=== PATIENT | male | born 1955 | race Caucasian/White ===

== ENCOUNTER → 2017-03-18 | Outpatient (CLI) | payer OTHER ==
[~2017-03-18] MED LIST: MECL-124 PO; PRX20T PO; SCOP1PAT TD
--- NOTE | 2017-03-18 13:53 | Diagnostic Imaging Report ---
EXAMINATION: Multiplanar multisequence MRI of the thoracic spine performed without intravenous contrast. INDICATION: Mid back pain and bilateral arm pain. FINDINGS: There is a prominent kyphosis in the [id number] thoracic spine. The alignment of the posterior spinal line is satisfactory. The vertebral body heights are preserved. There is a disc desiccation at all levels with mild disc height loss at midthoracic spine levels. There are multiple Schmorl's nodes seen. In T5 vertebral body, there is a 1 cm T1 hyperintense signal and also hyperintense T2 compatible with hemangioma. Multiple other smaller similar lesions are seen in the thoracic spine vertebral bodies. There is also suggestion of mild marrow edema around endplates of T2-T3 and T3-T4 levels suggestive of reactive changes from degenerative disc disease. Note is made of slightly prominent posterior epidural fat in the upper to midthoracic spine levels and relatively narrow AP dimension of the thecal sac without significant stenosis. There is a minimal posterior disc protrusion at the T5-T6 level with mild central canal stenosis reducing the AP dimension of the spinal canal to 9 mm at this level. No cord compression or cord signal abnormality. There is also a left paracentral disc protrusion at T10-T11 associated with moderate spinal canal stenosis reducing the AP dimension of the central canal to 8.2 mm with more pronounced narrowing along the left side aspect of the spinal canal with associated minimal compression of the spinal cord. No cord signal abnormality. At the T11-T12, there is a central disc protrusion and an annular tear with no significant spinal canal stenosis. No cord compression. The neural foramina demonstrate no significant narrowing. IMPRESSION: There is a left paracentral disc protrusion at the T10-T11 level associated with moderate spinal canal stenosis involving mostly the left side of the spinal canal and is associated with minimal cord compression. There is no cord signal abnormality. Dictated by: Dictated on workstation # [id number]
== END ==
LOC: RAD 08:11
PROVIDERS: ATTEND Nurse Practitioner
DX: M48.04 Spinal stenosis, thoracic region (principal)
CPT/HCPCS: 72146

== ENCOUNTER 2017-03-26 10:55 | Outpatient (RCR) | payer OTHER | END 2017-03-26 11:55 | disposition home or self-care (01) | PROVIDERS: ATTEND Physical Medicine & Rehabilitation | DX: M54.5 Low back pain (principal) ==

== ENCOUNTER 2019-03-29 05:36 | Outpatient (CLI) | payer OTHER ==
[~2019-03-29] VITALS: Ht 180.3 cm; Wt 99.8 kg
[2019-03-29] MEDS ORDERED: HYDR25TA4 PO (11:01)
[2019-03-29] MEDS ORDERED: CETI10TA17 PO (11:01)
[2019-03-29] MEDS ORDERED: LOVA20TA2 PO (11:01)
[2019-03-29] MEDS ORDERED: CHOL100045 PO (11:01)
[2019-03-29] MEDS ORDERED: PARO40TA3 PO (11:01)
[2019-03-29] MEDS ORDERED: ASPI-586 PO (11:01)
== END 2019-03-29 11:05 | disposition home or self-care (01) ==
LOC: PREOP 05:36
PROVIDERS: ATTEND Surgery
DX: Z01.818 Encounter for other preprocedural examination (principal)

== ENCOUNTER 2019-04-03 09:12 | Day surgery (SDC) | payer OTHER ==
[~2019-04-03] VITALS: Ht 180.3 cm; Wt 99.8 kg
[~2019-04-03 09:12] MED LIST changes: +ASPI-586 PO; +CETI10TA17 PO; +CHOL100045 PO; +HYDR25TA4 PO; +LOVA20TA2 PO; +PARO40TA3 PO
[2019-04-03] MEDS ORDERED: LACTATED RINGERS 1,000 ML IV ONE (09:18)
[2019-04-03] MEDS ORDERED: LACTATED RINGERS 1,000 ML IV STA (09:23)
--- NOTE | 2019-04-03 09:24 | Progress Note-Pre Operative ---
Pre-Operative Progress Note H&P Reviewed The H&P was reviewed, patient examined and no changes noted. Time Seen by Provider: 09:19 Date H&P Reviewed: Apr 03, 2019 Time H&P Reviewed: 09:20 Pre-Operative Diagnosis: Screening Colonoscopy BRITTNI GURROLA DO Apr 03, 2019 09:24
[2019-04-03 09:30] VITALS: BP 146/81
[2019-04-03] MEDS ORDERED: PROPOFOL INJECTION 50 ML IV ONE (10:44)
[2019-04-03] MEDS ORDERED: fentaNYL INJECTION 100 MCG/2 ML AMP ONE (10:45)
[2019-04-03] MEDS ORDERED: LIDOCAINE PF 2% 5 ML (XYLOCAINE) VIAL ONE (10:45)
[2019-04-03] MEDS ORDERED: MIDAZOLAM 2 MG/2 ML (VERSED) VIAL ONE (10:45)
--- NOTE | 2019-04-03 11:22 | Progress Note-Post Operative ---
Post-Operative Progess Note Surgeon (s)/Honing Machine Try Out Setter (s) Surgeon BRITTNI GURROLA DO Honing Machine Try Out Setter: none Pre-Operative Diagnosis Screening Colonoscopy Post-Operative Diagnosis Internal hemorrhoids Procedure & Operative Findings Date of Procedure 04/03/19 Procedure Performed/Findings colonoscopy Anesthesia Type IV sedation by IMAGER Estimated Blood Loss Estimated blood loss (mL): none Specimens/Packing Specimens Removed none BRITTNI GURROLA DO Apr 03, 2019 11:22
--- NOTE | 2019-04-03 11:23 | Endoscopy Discharge Instruct ---
Endo Procedure/Findings Findings 1.: Internal Hemorrhoids Discharge Instructions - Activity: You might feel a little sleepy until tomorrow. This is due to the me dicine you received to relax you. Until tomorrow, you should: NOT drive a car, operate machinery or power tools. NOT drink any alcoholic beverages. NOT make any important decisions or sign importortant papers. Do not return to work until tomorrow, unless otherwise instructed. Resume previous activities tomorrow. Diet: Start by taking liquids. If you tolerate liquids, advance to solid food. make an appointment for one week Instructions: 1.: Colonscopy in 10 years Notify Physician - If you experience excessive bleeding, unusual abdominal pain, fever, or chest pain, contact your doctor immediately. Follow-Up: - I have received and understand the above instructions and will call my doctor if I have any further questions. Patient Signature Date Nurse Signature Other (Relationship) BRITTNI GURROLA DO Apr 03, 2019 11:23
[2019-04-03 11:30] VITALS: BP 120/72
[2019-04-03 12:05] VITALS: BP 134/89
--- NOTE | 2019-04-03 22:01 | OPERATIVE REPORT ---
DATE OF SERVICE: PREOPERATIVE DIAGNOSIS: Screening colonoscopy with chronic diarrhea. POSTOPERATIVE DIAGNOSES: 1. Screening colonoscopy with chronic diarrhea. 2. Internal hemorrhoids. PROCEDURE: Colonoscopy. SURGEON: Xu Wagner DO PHOTOGRAPHER NEWS: None. ANESTHESIA: IV sedation by the BILINGUAL TEACHER ASSISTANT. SPECIMENS: None. BLOOD LOSS: None. FLUIDS: Per anesthesia. POSTOPERATIVE CONDITION: Stable. INDICATION FOR PROCEDURE: The patient is a 63-year-old male, who never had a colonoscopy, has a long history states 40 years of diarrhea and needed a screening colonoscopy. FINDINGS: The patient had some small internal hemorrhoids, but no other obvious pathology. PROCEDURE NOTE: After informed consent was obtained, the patient was brought to the endoscopy suite, placed in the bed in left lateral decubitus position. He was administered IV sedation by the BILINGUAL TEACHER ASSISTANT who then monitored his vitals the entire time, heart rate, blood pressure and pulse ox and the scope was inserted, pushed all the way to about 140 cm, able to get to the cecum, took a picture of appendiceal orifice, noted the ileocecal valve and then slowly withdrew the scope insufflating to look circumferentially at the rivera looking at the cecum, up the ascending colon to the hepatic flexure, then down the transverse colon, the splenic flexure, then down the descending colon into the sigmoid and finally into the rectum, retroflexed in the rectal vault, saw some minimal internal hemorrhoids, took a picture of this and then removed the scope. The patient tolerated the procedure well, recovered in the endoscopy suite. Job ID: [id number] DocumentID: [id number] Dictated Date: 04/03/2019 14:43:35 Band Edger Date: 04/03/2019 22:00:43 Dictated By: XU WAGNER DO
== END 2019-04-03 12:10 | disposition home or self-care (01) ==
LOC: ENDO 09:12
PROVIDERS: ATTEND Surgery
DX: K52.9 Noninfective gastroenteritis and colitis, unspecified (principal); K64.8 Other hemorrhoids; I10 Essential (primary) hypertension; F32.9 Major depressive disorder, single episode, unspecified; Z79.82 Long term (current) use of aspirin; Z79.899 Other long term (current) drug therapy

== ENCOUNTER 2019-05-18 09:49 | Inpatient (IN) | payer OTHER ==
[2019-05-18] VITALS (12 sets, daily range): BP systolic 116–135; BP diastolic 59–94
[~2019-05-18] VITALS: Ht 180.3 cm; Wt 92.5 kg
[2019-05-18] MEDS ORDERED: NS IV 1000 ML 1,000 ML IV ONE (10:37)
--- NOTE | 2019-05-18 10:39 | ED Psychosocial ---
General Chief Complaint: Psych/Social Disorder Stated Complaint: PSYCH EVAL;TROUBLE URINATING Nursing Triage Note: AMB TO ROOM REPORTS WAS TOLD BY [facility] TO COME TO ER. PATIENT REPORTS THAT IS HAS BEEN FEELING DEPRESSED BECAUSE HIS LEFT HIM. DOES NOT WANT TO KILL SELF BECAUSE IF YOU KILL YOU GO TO HELL. HAS NOT BEEN EATING OR DRINKING. Source: patient Exam Limitations: no limitations History of Present Illness Date Seen by Provider: May 18, 2019 Time Seen by Provider: 10:17 Initial Comments Here with report of suffering from depression but states he is not wanting to commit suicide. He has a safe place to go and has family support. He called the [facility] who recommended he come here for evaluation and potentially medication changes. He did not know that we do not have psychiatrist here. His daughter is available to stay with him home. He has no guns in the house as he had his brother in law remove them from the home. He'll safe otherwise. Symptoms exacerbated by recent separation with his . Does have long-standing history of depression. Admits to not eating or drinking well and states he is urinating less. Timing/Duration: week, getting worse Severity: moderate Associated Symptoms: anxiety, impaired concentration Allergies and Home Medications Allergies Coded Allergies: No Known Drug Allergies (Unverified , 09/18/13) Home Medications Aspirin 81 Mg Tablet.dr, 81 MG PO DAILY, (Reported) Cetirizine HCl 10 Mg Tablet, 10 MG PO DAILY, (Reported) Cholecalciferol (Vitamin D3) 1,000 Unit Tablet, 1,000 UNIT PO DAILY, (Reported) Hydrochlorothiazide 25 Mg Tablet, 25 MG PO DAILY, (Reported) Lovastatin 20 Mg Tablet, 20 MG PO DAILY, (Reported) Paroxetine HCl 40 Mg Tablet, 40 MG PO DAILY, (Reported) Patient Home Medication List Home Medication List Reviewed: Yes Review of Systems Constitutional: see HPI; No chills, No fever EENTM: no symptoms reported Respiratory: no symptoms reported Cardiovascular: no symptoms reported Gastrointestinal: No abdominal pain; loss of appetite; No nausea, No vomiting Psychiatric/Neurological: See HPI, Depressed, Emotional Problems All Other Systems Reviewed Negative Unless Noted: Yes Past Ycohlqf-Hcisfy-Rnhbzo Hx Past Med/Social Hx: Reviewed Nursing Past Med/Soc Hx Patient Social History Alcohol Use: Denies Use Recreational Drug Use: No Smoking Status: Former Smoker Recent Foreign Travel: No Contact w/Someone Who Travel: No Recent Infectious Disease Expo: No Recent Hopitalizations: No Immunizations Up To Date Date of Influenza Vaccine: Aug 04, 2013 Seasonal Allergies Seasonal Allergies: Yes Past Medical History Surgeries: Yes (WISDOM TEETH) Respiratory: Yes Sleep Apnea Cardiac: Yes High Cholesterol, Hypertension Neurological: No Genitourinary: No Gastrointestinal: Yes (rectal bleeding) Musculoskeletal: No Endocrine: No HEENT: No Cancer: No Psychosocial: Yes Depression Integumentary: No Blood Disorders: No Family Medical History Reviewed Nursing Family Hx No Pertinent Family Hx Physical Exam Vital Signs - First Documented 05/18/19 05/18/19 09:56 11:57 Temp 98.0 Pulse 86 Resp 18 B/P (MAP) 153/88 (109) Pulse Ox 94 O2 Delivery Room Air Capillary Refill : Less Than 3 Seconds Height, Weight, BMI Height: 5'11.00" Weight: 214lbs. 0.0oz. 97.249010cx; 30.7 BMI Method:Stated General Appearance: WD/WN, no apparent distress HEENT: PERRL/EOMI, pharynx normal Neck: full range of motion, supple Respiratory: lungs clear, normal breath sounds Cardiovascular: regular rate, rhythm, no murmur Gastrointestinal: non tender, soft Extremities: non-tender, normal inspection Neurologic/Psychiatric: alert, oriented x 3 Appearance/Memory: appropriate appearance, appropriate insight, neat Behavior/Eye Contact: cooperative, good eye contact, normal speech Thoughts/Hallucinations: normal thought pattern, no apparent hallucination, other (denies suicidal or homicidal ideations) Skin: normal color, warm/dry Progress/Results/Core Measures Results/Orders Lab Results Laboratory Tests Test 05/18/19 10:53 Range/Units White Blood Count 6.7 4.3-11.0 10^3/uL Red Blood Count 5.43 4.35-5.85 10^6/uL Hemoglobin 16.8 13.3-17.7 G/DL Hematocrit 48 40-54 % Mean Corpuscular Volume 89 80-99 FL Mean Corpuscular Hemoglobin 31 25-34 PG Mean Corpuscular Hemoglobin Concent 35 32-36 G/DL Red Cell Distribution Width 13.5 10.0-14.5 % Platelet Count 253 130-400 10^3/uL Mean Platelet Volume 10.0 7.4-10.4 FL Neutrophils (%) (Auto) 74 42-75 % Lymphocytes (%) (Auto) 17 12-44 % Monocytes (%) (Auto) 8 0-12 % Eosinophils (%) (Auto) 1 0-10 % Basophils (%) (Auto) 0 0-10 % Neutrophils # (Auto) 4.9 1.8-7.8 X 10^3 Lymphocytes # (Auto) 1.1 1.0-4.0 X 10^3 Monocytes # (Auto) 0.6 0.0-1.0 X 10^3 Eosinophils # (Auto) 0.0 0.0-0.3 10^3/uL Basophils # (Auto) 0.0 0.0-0.1 10^3/uL Sodium Level 139 135-145 MMOL/L Potassium Level 3.4 L 3.6-5.0 MMOL/L Chloride Level 104 98-107 MMOL/L Carbon Dioxide Level 23 21-32 MMOL/L Anion Gap 12 5-14 MMOL/L Blood Urea Nitrogen 21 H 7-18 MG/DL Creatinine 1.41 H 0.60-1.30 MG/DL Estimat Glomerular Filtration Rate 50 BUN/Creatinine Ratio 15 Glucose Level 137 H 70-105 MG/DL Calcium Level 9.6 8.5-10.1 MG/DL Corrected Calcium 9.2 8.5-10.1 MG/DL Total Bilirubin 0.9 0.1-1.0 MG/DL Aspartate Amino Transf (AST/SGOT) 19 5-34 U/L Alanine Aminotransferase (ALT/SGPT) 17 0-55 U/L Alkaline Phosphatase 64 40-136 U/L Total Protein 7.2 6.4-8.2 GM/DL Albumin 4.5 3.2-4.5 GM/DL TSH [place] Testing 1.33 0.35-4.94 UIU/ML Salicylates Level < 5.0 L 5.0-20.0 MG/DL Acetaminophen Level < 10 L 10-30 UG/ML Serum Alcohol < 10 <10 MG/DL My Orders Orders - JUAN MANUEL ALVES MD Ua Culture If Indicated (05/18/19 10:37) Cbc With Automated Diff (05/18/19 10:37) Comprehensive Metabolic Panel (05/18/19 10:37) Alcohol (05/18/19 10:37) Drug Screen Stat (Urine) (05/18/19 10:37) Acetaminophen (05/18/19 10:37) Salicylate (05/18/19 10:37) Ekg Tracing (05/18/19 10:37) Ed Iv/Invasive Line Start (05/18/19 10:37) Thyroid Analyzer (05/18/19 10:37) Monitor-Rhythm Ecg Trace Only (05/18/19 10:37) Bh Status Checks/Observation Q15M (05/18/19 10:37) Ed Iv/Invasive Line Start (05/18/19 10:37) Ns Iv 1000 Ml (Sodium Chloride 0.9%) (05/18/19 10:37) General/Regular (05/18/19 Lunch) Ns (Ivpb) (Sodium C... W/Diltiazem Iv Fo (05/18/19 11:45) Diltiazem Injection (Cardizem Injection) (05/18/19 11:45) Apixaban Tablet (Eliquis Tablet) (05/18/19 12:00) Chest 1 View, Ap/Pa Only (05/18/19 12:00) Ambulate 08,12,20 (05/18/19 12:02) Sequential Compression Device 08,20 (05/18/19 12:02) Dvt/Vte Risk - Notifiy Physici .ONCE (05/18/19 12:02) Mrsa Screen (Icu,Preop,Cath) (05/18/19 12:06) Mrsa Nursing Screening/Treatme .admit (05/18/19 12:06) Medications Given in ED Current Medications Medications Dose Ordered Sig/Seamus Route Start Time Stop Time Status Last Admin Dose Admin Apixaban 5 mg ONCE ONCE PO 05/18/19 12:00 05/18/19 12:01 DC 05/18/19 11:59 5 MG Diltiazem HCl 10 mg ONCE ONCE IVP 05/18/19 11:45 05/18/19 11:46 DC 05/18/19 11:38 10 MG Sodium Chloride 1,000 ml @ 0 mls/hr Q0M ONCE IV 05/18/19 10:37 05/18/19 10:39 DC 05/18/19 10:56 1,000 MLS/HR Vital Signs/I&O 05/18/19 05/18/19 05/18/19 09:56 11:44 11:57 Temp 98.0 Pulse 86 100 84 Resp 18 18 B/P (MAP) 153/88 (109) 126/89 (101) Pulse Ox 94 O2 Delivery Room Air Blood Pressure Mean: 109 Progress Progress Note : Progress Note Seen and evaluated. IV, labs, UA, EKG, normal saline 1 L bolus ordered. Regular diet ordered. Pending labs and [facility]. P atient has safe place to go and is not actively suicidal. We can consider trazodone instead of amitriptyline for sleep at night. Monitor patient. 1132: A. fib with RVR noted. Cardizem 10 mg IV bolus and 5 mg an hour initiated. I did discuss the case with Dr. Simpson she accepts patient for admission, inpatient status. Patient is [facility] also with [facility] and would prefer to stay here so we will admit him here. 1152: I did discuss the case with Dr. Lee and he accepts patient in consult and requests Eliquis 5 mg by mouth twice a day. This has been initiated. Patient agrees to plan. Admit, inpatient status. Initial ECG Impression Date: May 18, 2019 Initial ECG Impression Time: 11:06 Initial ECG Rate: 117 Initial ECG Rhythm: A Fib/Flutter Initial ECG Impression: Atrial Fibrillation w/RVR Initial ECG Comparisson: Changed Comment A. fib with RVR. Normal axis. No evidence of ST elevation NC. Change from previous of 18 September 2017. Interpreted by me. Diagnostic Imaging Diagonstic Imaging: Xray Plain Films/CT/US/NM/MRI: chest Comments MED REC#: [id number] PT STATUS: ADM IN : 1955 PHYSICIAN: JUAN MANUEL ALVES MD ADMIT DATE: 05/18/19/ICU Draf t Date of Exam:05/18/19 CHEST 1 VIEW, AP/PA ONLY Indication: Tachycardia. Time of exam: 12:07 PM Correlation is made prior chest from 10/08/2014. The heart size is normal. The pulmonary vascularity is unremarkable. The lungs are clear. No infiltrate, effusion or pneumothorax is detected. Impression: No acute cardiopulmonary process is detected. Dictated on workstation # [id number] Dict: 05/18/19 1216 Trans: 05/18/19 1219 [facility] [id number] Interpreted by: CROW MALAVE MD Electronically signed by: Reviewed: Reviewed by Me Departure Communication (Admissions) Time/Spoke to Admitting Phy: 11:32 Time/Spoke to Consulting Phy: 11:52 Impression Primary Impression: Atrial fibrillation with RVR Additional Impression: Depression Qualified Codes: F32.9 - Major depressive disorder, single episode, unspecified Disposition: ADMITTED INPATIENT Condition: Stable Admissions Decision to Admit Reason: Admit from ER (General) Decision to Admit/Date: May 18, 2019 Time/Decision to Admit Time: 11:32 Departure-Patient Inst. Referrals: NO,LOCAL PHYSICIAN (PCP/Family) Primary Care Physician JUAN MANUEL ALVES MD May 18, 2019 10:39
[2019-05-18 11:04] LABS: BASOPHILS % (AUTO) 0 % (0-10); EOSINOPHILS % (AUTO) 1 % (0-10); HEMATOCRIT 48 % (40-54); HEMOGLOBIN 16.8 G/DL (13.3-17.7); LYMPHOCYTES # (AUTO) 1.1 X 10^3 (1.0-4.0); LYMPHOCYTES % (AUTO) 17 % (12-44); MEAN CORPUSCULAR HEMOGLOBIN 31 PG (25-34); MEAN CORPUSCULAR HGB CONC 35 G/DL (32-36); MEAN CORPUSCULAR VOLUME 89 FL (80-99); MONOCYTES # (AUTO) 0.6 X 10^3 (0.0-1.0); MONOCYTES % (AUTO) 8 % (0-12); NEUTROPHILS # (AUTO) 4.9 X 10^3 (1.8-7.8); NEUTROPHILS % (AUTO) 74 % (42-75); PLATELET COUNT 253 10^3/uL (130-400); RED CELL DISTRIBUTION WIDTH 13.5 % (10.0-14.5); WHITE BLOOD COUNT 6.7 10^3/uL (4.3-11.0)
--- NOTE | 2019-05-18 11:13 | NUR ---
PLACED ON MONITOR EKG SHOW A FIB PATIENT REPORTS THAT HE UNAWARE OF HAVING A IRREGULAR HR.
[2019-05-18 11:21] LABS: ALANINE AMINOTRANSFERASE 17 U/L (0-55); ALBUMIN 4.5 GM/DL (3.2-4.5); ALKALINE PHOSPHATASE 64 U/L (40-136); BILIRUBIN,TOTAL 0.9 MG/DL (0.1-1.0); BUN/CREATININE RATIO 15; CALCIUM 9.6 MG/DL (8.5-10.1); CARBON DIOXIDE 23 MMOL/L (21-32); CHLORIDE 104 MMOL/L (98-107); CREATININE SERUM 1.41 MG/DL (0.60-1.30); GFR ESTIMATED 50; GLUCOSE 137 MG/DL (70-105); POTASSIUM 3.4 MMOL/L (3.6-5.0); SALICYLATE < 5.0 MG/DL (5.0-20.0); SODIUM 139 MMOL/L (135-145); TOTAL PROTEIN 7.2 GM/DL (6.4-8.2)
[2019-05-18 11:22] LABS: ACETAMINOPHEN < 10 UG/ML (10-30)
[2019-05-18] MEDS ORDERED: DILTIAZEM 25 MG/5 ML INJ (CARDIZEM) VIAL IVP ONE (11:45)
[2019-05-18] MEDS ORDERED: DILTIAZEM IV FOR DRIP 125 MG in NS (IVPB) 100 ML IV SCH (11:45)
--- NOTE | 2019-05-18 11:53 | NUR ---
FOOD TRAY ORDERED
[2019-05-18] MEDS ORDERED: APIXABAN 5 MG (ELIQUIS) TABLET PO ONE (12:00)
--- NOTE | 2019-05-18 12:19 | Diagnostic Imaging Report ---
Indication: Tachycardia. Time of exam: 12:07 PM Correlation is made prior chest from 10/08/2014. The heart size is normal. The pulmonary vascularity is unremarkable. The lungs are clear. No infiltrate, effusion or pneumothorax is detected. Impression: No acute cardiopulmonary process is detected. Dictated by: Dictated on workstation # [id number]
--- NOTE | 2019-05-18 12:24 | NUR ---
FOOD TRAY GIVEN
--- NOTE | 2019-05-18 12:38 | NUR ---
ON ADMIT BATTERY WENT ON MONITOR VITALS LOST.
[2019-05-18] MEDS ORDERED: NS IV 1000 ML 1,000 ML IV SCH (13:45)
--- NOTE | 2019-05-18 14:22 | Consultation-Cardiology ---
HPI-Cardiology Cardiology Consultation: Date of Consultation 05/18/19 Date of Admission Attending Physician Milady Simpson MD Admitting Physician No,Local Physician Consulting Physician Randall LEE MD HPI: Time Seen by a Provider: 15:00 Chief Complaint: atrial fibrillation with rapid ventricular rate this is a 63-year-old gentleman who denies having any significant cardiac symptoms. He denies active smoking. He does have history of anxiety and depression. He is not suicidal. He came to the ER for worsening anxiety. He was noted to have rapid irregular heart beating and was found to have atrial fibrillation with rapid ventricular rate. Review of Systems-Cardiology Review of Systems Constitutional: As described under HPI; No As described under HPI, No no symptoms reported, No chills, No fever, No lightheadedness Eyes: No As described under HPI, No no symptoms reported, No blindness, No blurred vision, No contact lenses, No drainage, No decreased acuity, No foreign body sensation, No pain, No vision change Ears/Nose/Throat: No As described under HPI, No no symptoms reported, No chronic hearing loss, No ear discharge, No ear pain, No nasal drainage, No ulcerations Respiratory: No no symptoms reported; As described under HPI; No As described under HPI, No cough, No orthopnea, No shortness of breath, No SOB with excertion Cardiovascular: No no symptoms reported; As described under HPI; No As described under HPI, No chest pain, No edema, No irregular heart rate, No lightheadedness, No palpitations Gastrointestinal: No no symptoms reported, No As described under HPI, No abdomen distended, No abdominal pain, No blood streaked bowels, No constipation, No diarrhea, No nausea, No vomiting, No stool coloration changes Genitourinary: No As described under HPI, No burning, No dysuria, No discharge, No frequency, No flank pain, No hematuria, No urgency Skin: No rash, No skin related problems, No ulcerations Psychiatric/Neurological: anxiety, depression; No seizure, No focal weakness, No syncope Hematologic: No bleeding abnormalities All Other Systems Reviewed Negative Unless Noted: Yes BAN-Jdziea-Zrazlr Hx Patient Social History Alcohol Use: Denies Use Recreational Drug Use: No Smoking Status: Former Smoker Recent Foreign Travel: No Recent Infectious Disease Expo: No Hospitalization with Isolation: Denies Immunizations Up To Date Date of Influenza Vaccine: Aug 04, 2013 Past Medical History PMH As described under Assessment. Allergies and Home Medications Allergies Coded Allergies: No Known Drug Allergies (Unverified , 09/18/13) Home Medications Amitriptyline HCl 25 Mg Tablet, 50 MG PO HS, (Reported) TAKES 2 (25MG) TABLETS Aspirin 81 Mg Tablet.dr, 81 MG PO DAILY, (Reported) Cetirizine HCl 10 Mg Tablet, 10 MG PO DAILY, (Reported) Cholecalciferol (Vitamin D3) 1,000 Unit Tablet, 1,000 UNIT PO DAILY, (Reported) Fluticasone Propionate 16 Gm Mott.susp, 2 SPRAYS NS DAILY PRN for ALLERGIES, (Reported) Hydrochlorothiazide 25 Mg Tablet, 12.5 MG PO DAILY, (Reported) TAKES 1/2 (25MG) TABLET Lovastatin 10 Mg Tablet, 5 MG PO DAILY, (Reported) TAKES 1/2 (10MG) TABLET Melatonin 5 Mg Capsule, 5 MG PO HS PRN for SLEEP, (Reported) Paroxetine HCl 40 Mg Tablet, 40 MG PO DAILY, (Reported) Patient Home Medication List Home Medication List Reviewed: Yes Physical Exam-Cardiology Physical Exam Vital Signs/I&O 05/18/19 05/18/19 05/18/19 05/18/19 09:56 11:44 11:57 12:42 Temp 98.0 Pulse 86 100 84 105 Resp 18 18 18 B/P (MAP) 153/88 (109) 126/89 (101) 127/75 (92) Pulse Ox 94 97 O2 Delivery Room Air Room Air 05/18/19 05/18/19 05/18/19 05/18/19 13:07 13:10 13:43 14:00 Pulse 106 107 129 B/P (MAP) 120/91 (101) 116/79 (91) Pulse Ox 98 96 O2 Delivery Room Air Room Air Room Air 05/18/19 05/18/19 15:00 15:48 Pulse 89 93 B/P (MAP) 135/59 (84) Pulse Ox 96 O2 Delivery Room Air Capillary Refill : Less Than 3 Seconds Constitutional: appears stated age, AAO x 3; No apparent distress; well- developed, well-nourished HEENT: PERRL; No normal ENT inspection, No TMs normal, No pharynx normal, No scleral icterus (R), No scleral icterus (L), No pale conjunctivae (R), No pale conjunctivae (L), No photophobia, No TM abnormal (R), No TM abnormal (L), No pharyngeal erythema, No tonsillar exudate, No other, No discharge, No EOMI; hearing is well preserved; No hard of hearing; oral hygience is good; No ulceration, No xanthelasmas are seen Neck: No non-tender, No full range of motion, No supple, No normal inspection, No carotid bruit, No limited range of motion, No lymphadenopathy (R), No lymphadenopathy (L), No tender lateral, No tender midline, No thyromegaly, No other; carotid pulses are 2 + bilaterally; No with good upstrokes Respiratory: No accessory muscle use, No respiratory distress, No chest tender, No chest expansion is symmetric; chest is bilaterally symmetric; No lungs clear to percussion; lungs clear to auscultation; No crackles, No rhonchi, No rales, No stridor, No wheezing, No pleural rub, No other Cardiovascular: No regular rate-rhythm; irregularly irregular; No extra beats, No parasternal heave is noted, No JVD, No edema, No bradycardia; tachycardia; No point of maximal impulse, No cardiac thrills are palpable; S1 and S2; No gallop/S3, No gallop/S4, No diastolic murmur, No systolic murmur, No friction rub, No click, No other Gastrointestinal: No tender, No soft, No round, No distended, No pulsatile mass, No organomegaly, No guarding, No rebound, No tenderness, No hernia, No mass, No audible bowel sounds, No abnormal bowel sounds, No abdominal bruits, No spleenomegaly, No other Rectal: deferred Extremities: No normal range of motion, No non-tender, No normal inspection, No pedal edema, No calf tenderness, No normal capillary refill, No pelvis stable, No calf tenderness, No inflammation, No pedal edema, No slow capillary refill, No swelling, No other, No abrasion, No clubbing, No cyanosis, No ecchymosis, No laceration, No no lower extremity edema bilateral, No significant edema, No tenderness, No wound Neurologic/Psychiatric: no motor/sensory deficits, alert, normal mood/affect, oriented x 3, power is 5/5 both on sides Skin: No normal color, No warm/dry, No cyanosis, No cool, No diaphoresis, No damp, No ecchymosis, No jaundice, No mottled, No pallor, No rash, No tattoos/piercings, No ulcerations, No rash on exposed areas, No ulcerations on exposed areas, No other Data Review Labs Laboratory Tests 05/18/19 10:53: White Blood Count 6.7, Red Blood Count 5.43, Hemoglobin 16.8, Hematocrit 48, Mean Corpuscular Volume 89, Mean Corpuscular Hemoglobin 31, Mean Corpuscular Hemoglobin Concent 35, Red Cell Distribution Width 13.5, Platelet Count 253, Mean Platelet Volume 10.0, Neutrophils (%) (Auto) 74, Lymphocytes (%) (Auto) 17, Monocytes (%) (Auto) 8, Eosinophils (%) (Auto) 1, Basophils (%) (Auto) 0, Neutrophils # (Auto) 4.9, Lymphocytes # (Auto) 1.1, Monocytes # (Auto) 0.6, Eosinophils # (Auto) 0.0, Basophils # (Auto) 0.0, Sodium Level 139, Potassium Level 3.4L, Chloride Level 104, Carbon Dioxide Level 23, Anion Gap 12, Blood Urea Nitrogen 21H, Creatinine 1.41H, Estimat Glomerular Filtration Rate 50, BUN/Creatinine Ratio 15, Glucose Level 137H, Calcium Level 9.6, Corrected Henry cium 9.2, Total Bilirubin 0.9, Aspartate Amino Transf (AST/SGOT) 19, Alanine Aminotransferase (ALT/SGPT) 17, Alkaline Phosphatase 64, Total Protein 7.2, Albumin 4.5, TSH Tobias Testing 1.33, Salicylates Level < 5.0L, Acetaminophen Level < 10L, Serum Alcohol < 10 ECG Impression ECG Initial ECG Impression: Atrial Fibrillation w/RVR A/P-Cardiology Assessment/Admission Diagnosis atrial fibrillation with rapid ventricular rate, Chronic kidney disease, Anxiety, Depression Plan Cardizem infusion. Give amiodarone bolus 150 mg 1. Start amiodarone infusion. Start Eliquis 5 mg twice a day. CHADSVASC score 2 for age over 65 and hypertension. Therefore oral anticoagulation therapy is superior to aspirin for stroke prevention. I spoke to him about pathophysiology of atrial fibrillation. If patient does not convert till tomorrow morning, transesophageal echocardiogram assisted cardioversion is recommended. Nothing by mouth after midnight. I will recommend an echocardiogram. Chronic kidney disease. Anxiety/depression. Defer to Dr. Simpson. Thank you for your consultation. Please call me if you have any questions. Precious Lee MD, FACP, FACC, FSCAI, FHRS, CCDS Interventional Cardiology Cardiac Electrophysiology Vascular Medicine and Endovascular Interventions Clinical Quality Measures DVT/VTE Risk/Contraindication: Risk Factor Score Per Nursin RFS Level Per Nursing on Admit: 2=Moderate Randall LEE MD May 18, 2019 14:22
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
--- NOTE | 2019-05-18 14:38 | NUR ---
REQUESTED MEDICATION LIST TO BE FAXED FROM [facility] AT THIS TIME.
[2019-05-18] MEDS ORDERED: LOVA10TA PO (15:27)
[2019-05-18] MEDS ORDERED: AMIT25TA9 PO (15:27)
[2019-05-18] MEDS ORDERED: FLUT16SP22 NS (15:27)
[2019-05-18] MEDS ORDERED: AMIODARONE FOR BOLUS 150 MG in D5W 100 ML IVPB 100 ML IV ONE (15:30)
[2019-05-18] MEDS ORDERED: MELA5CAP PO (15:30)
--- NOTE | 2019-05-18 15:30 | NUR ---
SPOKE WITH THE PATIENT ABOUT HIS MEDICATIONS. HE COULD NOT FIND HIS LIST BUT WE WENT OVER WHAT WE HAD ON FILE AND HE WAS ABLE TO VERIFY HOW HE TAKES THEM. HE ALSO STATES THEY STARTED HIM ON A NEW NIGHT TIME MEDICATION. [facility] [place] [facility]. I UPDATED THE MED REC WITH THAT INFORMATION. [facility]ILL[facility]: 04-26-19 FLONASE NASAL SPRAY 2 SPRAYS NS DAILY (PATIENT DID NOT LIST THIS BUT I ADDED IT TO THE MED REC PRN) 04-26-19 PAROXETINE 40MG DAILY #90 04-26-19 LOVASTATIN 10MG 1/2 DAILY #45 04-18-19 AMITRIPTYLINE 25MG 1 HS X 2 WEEKS THEN 2 HS #173 (TAKES 2 HS NOW) 03-31-19 CETIRIZINE 10MG DAILY #90 03-25-19 HCTZ 25MG 1/2 TAB DAILY #45 01-25-19 LIDOCAINE 5% OINT BID PRN (NOT CURRENTLY USING) 08-24-18 SUMATRIPTAN SUCCINATE 100MG UD #9 (NOT LISTED BY PATIENT) HE TAKES VITAMIN D AND ASPIRIN 81MG DAILY OTC WELL MELATONIN AT HS.
[2019-05-18] MEDS: DILTIAZEM 125 MG/NS 100 ML IV SCH ×4 (15:48→23:19)
[2019-05-18] MEDS: AMIODARONE INJECTION 450 MG in D5W IV SOLUTION (EXCEL) 250 ML IV SCH (15:49)
[2019-05-18] MEDS ORDERED: FLUTICASONE NASAL SPRAY (FLONASE) 16 GM BTL NS PRN (16:15)
[2019-05-18] MEDS: LORazepam 0.5 MG (ATIVAN) TABLET PO PRN (17:21)
[2019-05-18] MEDS: TAMSULOSIN 0.4 MG (FLOMAX) CAP PO SCH (17:21)
[2019-05-18 20:11] LABS: BILIRUBIN,URINE NEGATIVE (NEGATIVE); CLARITY,URINE CLEAR; COLOR,URINE YELLOW; GLUCOSE, URINE (UA) NEGATIVE (NEGATIVE); KETONES,URINE NEGATIVE (NEGATIVE); LEUKOCYTE ESTERASE ,URINE 1+ (NEGATIVE); NITRITE,URINE NEGATIVE (NEGATIVE); PH,URINE 5 (5-9); PROTEIN,URINE NEGATIVE (NEGATIVE); UROBILINOGEN,URINE NORMAL (NORMAL)
[2019-05-18] MEDS: APIXABAN 5 MG (ELIQUIS) TABLET PO SCH (20:15)
[2019-05-18] MEDS: AMITRIPTYLINE 50 MG (ELAVIL) TAB PO SCH (20:16)
[2019-05-18] MEDS: SIMvastatin 10 MG (ZOCOR) TAB PO SCH (20:18)
[2019-05-18 20:27] LABS: BACTERIA,URINE FEW /HPF
[2019-05-18 20:31] LABS: AMPHETAMINE SCREEN, URINE NEGATIVE (NEGATIVE); BARBITURATE SCREEN URINE NEGATIVE (NEGATIVE); BENZODIAZEPINES SCREEN URINE NEGATIVE (NEGATIVE); CANNABINOID SCREEN, URINE NEGATIVE (NEGATIVE); COCAINE SCREEN URINE NEGATIVE (NEGATIVE); METHADONE STAT NEGATIVE (NEGATIVE); METHAMPHETAMINE SCREEN URINE S NEGATIVE (NEGATIVE); OPIATE SCREEN URINE NEGATIVE (NEGATIVE); OXYCODONE STAT NEGATIVE (NEGATIVE); PROPOXYPHENE STAT NEGATIVE (NEGATIVE); TRICYCLIC ANTIDEPRESSANTS SCRE POSITIVE (NEGATIVE)
[2019-05-18] MEDS ORDERED: MELATONIN 3 MG TABLET PO PRN (21:00)
[2019-05-18] MEDS ORDERED: APIXABAN 5 MG (ELIQUIS) TABLET PO SCH (21:00)
[2019-05-19] VITALS (8 sets, daily range): BP systolic 111–160; BP diastolic 59–75
[2019-05-19] MEDS: AMIODARONE INJECTION 450 MG in D5W IV SOLUTION (EXCEL) 250 ML IV SCH ×2
[2019-05-19] MEDS: LORazepam 0.5 MG (ATIVAN) TABLET PO PRN (00:18)
[2019-05-19 03:47] LABS: BASOPHILS % (AUTO) 1 % (0-10); EOSINOPHILS # (AUTO) 0.1 10^3/uL (0.0-0.3); EOSINOPHILS % (AUTO) 1 % (0-10); HEMATOCRIT 41 % (40-54); HEMOGLOBIN 13.8 G/DL (13.3-17.7); LYMPHOCYTES # (AUTO) 1.7 X 10^3 (1.0-4.0); LYMPHOCYTES % (AUTO) 20 % (12-44); MEAN CORPUSCULAR HEMOGLOBIN 31 PG (25-34); MEAN CORPUSCULAR HGB CONC 34 G/DL (32-36); MEAN CORPUSCULAR VOLUME 91 FL (80-99); MEAN PLATELET VOLUME 10.2 FL (7.4-10.4); MONOCYTES # (AUTO) 0.7 X 10^3 (0.0-1.0); MONOCYTES % (AUTO) 9 % (0-12); NEUTROPHILS # (AUTO) 5.6 X 10^3 (1.8-7.8); NEUTROPHILS % (AUTO) 69 % (42-75); PLATELET COUNT 215 10^3/uL (130-400); RED CELL DISTRIBUTION WIDTH 13.3 % (10.0-14.5); WHITE BLOOD COUNT 8.2 10^3/uL (4.3-11.0)
[2019-05-19 04:06] LABS: CALCIUM 8.9 MG/DL (8.5-10.1); CREATININE SERUM 1.68 MG/DL (0.60-1.30); MAGNESIUM 1.7 MG/DL (1.6-2.4); POTASSIUM 3.5 MMOL/L (3.6-5.0)
[2019-05-19] MEDS ORDERED: KCL 20 MEQ TAB (K-DUR) PO ONE (05:15)
[2019-05-19] MEDS ORDERED: POTASSIUM CL 10MEQ/50ML IVPB 50 ML IV SCH (06:00)
[2019-05-19] MEDS ORDERED: MAGNESIUM 1 GM/100 ML IVPB 100 ML IV SCH (06:00)
[2019-05-19] MEDS ORDERED: KCL 20 MEQ TAB (K-DUR) PO SCH (06:00)
[2019-05-19] MEDS: MAGNESIUM 1 GM/100 ML IVPB 100 ML IV SCH ×2 (06:51→09:32)
--- NOTE | 2019-05-19 07:49 | Progress Note - Hospitalist ---
EMELIA MEDRANO,MED STUDENT 05/19/19 7:49am: Subjective HPI/CC On Admission Date Seen by Provider: May 19, 2019 Patient is a 63y/o M that presented to the ED for depression upon the recommendation of the the [facility]. His episode started about a week ago and he denies any thoughts of self-harm because "people that kill themselves go to he ll". His recently left him and got a restraining order against him. Patient said that he has not been eating or drinking much for the past month and mentioned that he has not been sleeping well. Denies fever, chills, CHASE, Nausea, vomiting, chest pain. Admits to dizziness, feeling clammy, Brambila, and dysuria. No history of a-fib Subjective/Events-last exam Patient states that he is tired because he did not go to sleep until 4am this morning but overall he says that he is feeling better. He denies headache, nausea, vomiting, SOB, weakness, chest pain, diaphoresis, constipation, diarrhea, numbness, tingling. Admits to stomach pain, tiredness, and urinary hesitancy. Patient says that he has not voided much and had a catheter put in but it was to uncomfortable so he had it taken out. Patient says that family did come to see him yesterday. Objective Exam Vital Signs Vital Signs Date Time Temp Pulse Resp B/P (MAP) Pulse Ox O2 Delivery O2 Flow Rate FiO2 05/19/19 12:00 98.3 05/19/19 12:00 67 24 96 Room Air 05/19/19 06:00 124/75 (91) Capillary Refill : Less Than 3 Seconds General Appearance: No Apparent Distress, WD/WN, Obese Neck: Non Tender, Supple Respiratory: Chest Non Tender, Lungs Clear, Normal Breath Sounds, No Accessory Muscle Use, No Respiratory Distress Cardiovascular: Regular Rate, Rhythm, No Edema, No Gallop, No JVD, No Murmur, Normal Peripheral Pulses Gastrointestinal: Normal Bowel Sounds, No Pulsatile Mass, Non Tender, Soft Extremity: Non Tender, No Calf Tenderness, No Pedal Edema Neurologic/Psychiatric: Alert, Oriented x3, Normal Mood/Affect Skin: Normal Color, Warm/Dry Results/Procedures Lab Laboratory Tests 05/19/19 03:07 Patient resulted labs reviewed. Assessment/Plan Assessment and Plan Assess & Plan/Chief Complaint A-fib converted overnight to sinus rhythm while on amnio drip consult cardiology continue eliquis for stroke ppx continue diltiazem Hypokalemia K+ protocol HTN hold HCTZ hypercholesterolemia continue Lovastatin Depression with suicidal ideations consult social service coordinator consult [facility] = safe for discharge with outpatient follow up continue antidepressants = Ativan and amitriptyline FENGIPPX Stop fluids K+ protocol regular diet eliquis Clinical Quality Measures DVT/VTE Risk/Contraindication: Risk Factor Score Per Nursin RFS Level Per Nursing on Admit: 2=Moderate DAVON SIMPSON MD 05/19/19 4:06pm: Subjective HPI/CC On Admission Time Seen by Provider: 09:00 Assessment/Plan Assessment and Plan Assess & Plan/Chief Complaint Completed amiodarone drip tonight. Will monitor overnight to make sure stays in sinus rhythm. Seen by Saulo Renteria with [facility] and cleared for discharge for psych outpatient follow up. Will likely be able to DC home tomorrow if maintains sinus rhythm. Supervisory-Addendum Brief Verification & Attestation Participated in pt care: history, MDM, physical Personally performed: exam, history, MDM, supervision of care Care discussed with: Medical Student Procedures: n/a Results interpretation: Verified all documentation Verification and Attestation of Medical Student E/M Service A medical student performed and documented this service in my presence. I revi ewed and verified all information documented by the medical student and made modifications to such information, when appropriate. I personally performed the physical exam and medical decision making. Davon Simpson, May 19, 2019,16:05 EMELIA MEDRANO,MED STUDENT May 19, 2019 7:49 am DAVON SIMPSON MD May 19, 2019 4:06 pm
--- NOTE | 2019-05-19 07:56 | Diagnostic Imaging Report ---
Indication: Shortness breath, atrial fibrillation. Comparison: 02/15/2019 Findings: Single view of the chest demonstrates clear lungs bilaterally. The heart is normal. There is no pneumothorax. The osseous structures normal. Impression: Negative chest. Dictated by: Dictated on workstation # [id number]
--- NOTE | 2019-05-19 09:14 | NUR ---
CM/SS spoke with the patient and he denies wanting to commit suicide. He does state that he would like to go to sleep and not wake up, but that there is a difference. He will not commit suicide as it is a sin and he would go to hell. He stated that he and his are and getting a divorce, that she has said that he was stalking her and has a PFA against him at this time, he claims it is false accusations and he was not stalking her. He did have his brother take him to the [employer] office and gave them his guns and a knife he had. [facility] [place] [place] and then the [facility] in . He will get his medications filled with them and is in the process of having counseling set up. TERESO Floyd, Saulo Renteria, contacted and is screening the patient at this time.
[2019-05-19] MEDS: ASPIRIN 81 MG CHEW (CHILDREN'S ASA) PO SCH (09:32)
[2019-05-19] MEDS: DILTIAZEM 120 MG (CARDIZEM CD) CAP PO SCH (09:33)
[2019-05-19] MEDS: PARoxetine 20 MG (PAXIL) TAB PO SCH (09:33)
[2019-05-19] MEDS: APIXABAN 5 MG (ELIQUIS) TABLET PO SCH ×2 (09:34→21:55)
[2019-05-19] MEDS: LORATADINE (CLARITIN) 10 MG TAB PO SCH (09:34)
--- NOTE | 2019-05-19 10:01 | Cardiology Progress Note ---
Cardiology SOAP Progress Note Subjective: Converted to sinus rhythm last evening. Objective: I&O/Vital Signs 05/18/19 05/18/19 05/18/19 05/19/19 22:00 23:00 23:19 00:00 Pulse 63 57 B/P (MAP) 123/67 (85) 131/83 (99) Pulse Ox 93 96 O2 Delivery Room Air Room Air Mechanical Ventilator Room Air 05/19/19 05/19/19 05/19/19 05/19/19 00:00 01:00 01:00 02:00 Pulse 62 58 62 52 Resp 12 18 17 B/P (MAP) 123/68 (86) 126/65 (85) 111/59 (76) Pulse Ox 96 94 98 O2 Delivery Room Air Room Air Room Air 05/19/19 05/19/19 05/19/19 05/19/19 03:00 04:00 04:00 05:00 Pulse 53 79 57 Resp 23 18 B/P (MAP) 119/63 (81) 121/75 (90) Pulse Ox 95 92 O2 Delivery Room Air Room Air Room Air Room Air 05/19/19 05/19/19 05/19/19 05/19/19 06:00 07:00 07:00 08:00 Pulse 55 59 52 56 Resp 19 17 22 B/P (MAP) 124/75 (91) Pulse Ox 94 95 95 O2 Delivery Room Air Room Air Room Air 05/19/19 05/19/19 09:00 09:53 Temp 97.7 Pulse 75 Resp 13 Pulse Ox 97 O2 Delivery Room Air 05/19/19 00:00 Intake Total 1464 ml Output Total 875 ml Balance 589 ml Weight (Pounds): 204 Weight (Ounces): 0.1 Weight (Calculated Kilograms): 92.029407 Constitutional: appears stated age, AAO x 3; No apparent distress; well- developed, well-nourished Respiratory: No accessory muscle use, No respiratory distress, No chest tender, No chest expansion is symmetric; chest is bilaterally symmetric; No lungs clear to percussion; lungs clear to auscultation; No crackles, No rhonchi, No rales, No stridor, No wheezing, No pleural rub, No other Cardiovascular: regular rate-rhythm; No irregularly irregular, No extra beats, No parasternal heave is noted, No JVD, No edema, No bradycardia, No tachycardia, No point of maximal impulse, No cardiac thrills are palpable; S1 and S2; No gallop/S3, No gallop/S4, No diastolic murmur, No systolic murmur, No friction rub, No click, No other Gastrointestional: No tender, No soft, No round, No distended, No pulsatile mass, No organomegaly, No guarding, No rebound, No tenderness, No hernia, No mass, No audible bowel sounds, No abnormal bowel sounds, No abdominal bruits, No spleenomegaly, No other Extremities: No normal range of motion, No non-tender, No normal inspection, No pedal edema, No calf tenderness, No normal capillary refill, No pelvis stable, No calf tenderness, No inflammation, No pedal edema, No slow capillary refill, No swelling, No other, No abrasion, No clubbing, No cyanosis, No ecchymosis, No laceration, No no lower extremity edema bilateral, No significant edema, No tenderness, No wound Neurologic/Psychiatric: no motor/sensory deficits, alert, normal mood/affect, oriented x 3, power is 5/5 both on sides Skin: No normal color, No warm/dry, No cyanosis, No cool, No diaphoresis, No damp, No ecchymosis, No jaundice, No mottled, No pallor, No rash, No tattoos/piercings, No ulcerations, No rash on exposed areas, No ulcerations on exposed areas, No other Results/Procedures: Labs Laboratory Tests 05/18/19 10:53: White Blood Count 6.7, Red Blood Count 5.43, Hemoglobin 16.8, Hematocrit 48, Mean Corpuscular Volume 89, Mean Corpuscular Hemoglobin 31, Mean Corpuscular Hemoglobin Concent 35, Red Cell Distribution Width 13.5, Platelet Count 253, Mean Platelet Volume 10.0, Neutrophils (%) (Auto) 74, Lymphocytes (%) (Auto) 17, Monocytes (%) (Auto) 8, Eosinophils (%) (Auto) 1, Basophils (%) (Auto) 0, Neutrophils # (Auto) 4.9, Lymphocytes # (Auto) 1.1, Monocytes # (Auto) 0.6, Eosinophils # (Auto) 0.0, Basophils # (Auto) 0.0, Sodium Level 139, Potassium Level 3.4L, Chloride Level 104, Carbon Dioxide Level 23, Anion Gap 12, Blood Urea Nitrogen 21H, Creatinine 1.41H, Estimat Glomerular Filtration Rate 50, BUN/Creatinine Ratio 15, Glucose Level 137H, Calcium Level 9.6, Corrected Calcium 9.2, Total Bilirubin 0.9, Aspartate Amino Transf (AST/SGOT) 19, Alanine Aminotransferase (ALT/SGPT) 17, Alkaline Phosphatase 64, Total Protein 7.2, Albumin 4.5, TSH Terry Testing 1.33, Salicylates Level < 5.0L, Acetaminophen Level < 10L, Serum Alcohol < 10 05/18/19 20:00: Urine Color YELLOW, Urine Clarity CLEAR, Urine pH 5, Urine Specific [place] 1.025H, Urine Protein NEGATIVE, Urine Glucose (UA) NEGATIVE, Urine Ketones NEGATIVE, Urine Nitrite NEGATIVE, Urine Bilirubin NEGATIVE, Urine Urobilinogen NORMAL, Urine Leukocyte Esterase 1+H, Urine RBC (Auto) NEGATIVE, Urine RBC NONE, Urine WBC 5-10H, Urine Crystals NONE, Urine Bacteria FEWH, Urine Casts NONE, Urine Mucus NEGATIVE, Urine Culture Indicated CULTURE PENDING, Urine Opiates Screen NEGATIVE, Urine Oxycodone Screen NEGATIVE, Urine Methadone Screen NEGATIVE, Urine Propoxyphene Screen NEGATIVE, Urine Barbiturates Screen NEGATIVE, Ur Tricyclic Antidepressants Screen POSITIVEH, Urine Phencyclidine Screen NEGATIVE, Urine Amphetamines Screen NEGATIVE, Urine Methamphetamines Screen NEGATIVE, Urine Benzodiazepines Screen NEGATIVE, Urine Cocaine Screen NEGATIVE, Urine Cannabinoids Screen NEGATIVE 05/19/19 03:07: White Blood Count 8.2, Red Blood Count 4.45, Hemoglobin 13.8, Hematocrit 41, Mean Corpuscular Volume 91, Mean Corpuscular Hemoglobin 31, Mean Corpuscular Hemoglobin Concent 34, Red Cell Distribution Width 13.3, Platelet Count 215, Mean Platelet Volume 10.2, Neutrophils (%) (Auto) 69, Lymphocytes (%) (Auto) 20, Monocytes (%) (Auto) 9, Eosinophils (%) (Auto) 1, Basophils (%) (Auto) 1, Neutrophils # (Auto) 5.6, Lymphocytes # (Auto) 1.7, Monocytes # (Auto) 0.7, Eosinophils # (Auto) 0.1, Basophils # (Auto) 0.0, Sodium Level 141, Potassium Level 3.5L, Chloride Level 104, Carbon Dioxide Level 25, Anion Gap 12, Blood Urea Nitrogen 25H, Creatinine 1.68H, Estimat Glomerular Filtration Rate 41, BUN/Creatinine Ratio 15, Glucose Level 129H, Calcium Level 8.9, Phosphorus Level 4.0, Magnesium Level 1.7 A/P: Assessment/Dx: atrial fibrillation with rapid ventricular rate, converted to sinus rhythm last evening. Chronic kidney disease, Anxiety, Depression Plan: Atrial fibrillation with rapid ventricular rate, converted to sinus rhythm last evening. Finish amiodarone infusion. Change Cardizem infusion to Cardizem CD 120 mg by mouth. Continue Eliquis. Event monitor for a month. Patient can follow-up with me in 6 weeks on discharge. Chronic kidney disease. Anxiety/depression. Defer to Dr. Simpson. Thank you for your consultation. Please call me if you have any questions. Precious Lee MD, FACP, FACC, FSCAI, FHRS, CCDS Interventional Cardiology Cardiac Electrophysiology Vascular Medicine and Endovascular Interventions Randall LEE MD May 19, 2019 10:01 am
--- NOTE | 2019-05-19 10:34 | NUR ---
CM/SS SAVE Line Saulo Renteria, assessed. Copy of assessment in patient chart. Patient is ok'ed for outpatient plan. Saulo felt that he does have some ideation not suicide ideation. The daughter will stay with the patient for a few days. [facility]
--- NOTE | 2019-05-19 11:56 | Discharge Summary ---
Diagnosis/Chief Complaint Date of Admission May 18, 2019 at 12:18 pm Date of Discharge Admission Diagnosis Primary Care No,Local Physician Discharge Diagnosis (1) Atrial fibrillation with RVR Status: Acute (2) Depression Status: Acute (3) Suicidal ideation (4) Essential (primary) hypertension (5) Hypokalemia (6) PBA (pseudobulbar affect) Discharge Summary Discharge Physical Exam Allergies: Coded Allergies: No Known Drug Allergies (Unverified , 09/18/13) Vitals & I&Os Vital Signs Date Time Temp Pulse Resp B/P (MAP) Pulse Ox O2 Delivery O2 Flow Rate FiO2 05/19/19 12:00 98.3 05/19/19 12:00 67 24 96 Room Air 05/19/19 06:00 124/75 (91) Hospital Course Labs (last 24 hrs) Laboratory Tests 05/18/19 20:00: Urine Color YELLOW, Urine Clarity CLEAR, Urine pH 5, Urine Specific [place] 1.025H, Urine Protein NEGATIVE, Urine Glucose (UA) NEGATIVE, Urine Ketones NEGATIVE, Urine Nitrite NEGATIVE, Urine Bilirubin NEGATIVE, Urine Urobilinogen NORMAL, Urine Leukocyte Esterase 1+H, Urine RBC (Auto) NEGATIVE, Urine RBC NONE, Urine WBC 5-10H, Urine Crystals NONE, Urine Bacteria FEWH, Urine Casts NONE, Urine Mucus NEGATIVE, Urine Culture Indicated CULTURE PENDING, Urine Opiates Screen NEGATIVE, Urine Oxycodone Screen NEGATIVE, Urine Methadone Screen NEGATIVE, Urine Propoxyphene Screen NEGATIVE, Urine Barbiturates Screen NEGATIVE, Ur Tricyclic Antidepressants Screen POSITIVEH, Urine Phencyclidine Screen NEGATIVE, Urine Amphetamines Screen NEGATIVE, Urine Methamphetamines Screen NEGATIVE, Urine Benzodiazepines Screen NEGATIVE, Urine Cocaine Screen NEGATIVE, Urine Cannabinoids Screen NEGATIVE 05/19/19 03:07: White Blood Count 8.2, Red Blood Count 4.45, Hemoglobin 13.8, Hematocrit 41, Mean Corpuscular Volume 91, Mean Corpuscular Hemoglobin 31, Mean Corpuscular Hemoglobin Concent 34, Red Cell Distribution Width 13.3, Platelet Count 215, M luba Platelet Volume 10.2, Neutrophils (%) (Auto) 69, Lymphocytes (%) (Auto) 20, Monocytes (%) (Auto) 9, Eosinophils (%) (Auto) 1, Basophils (%) (Auto) 1, Neutrophils # (Auto) 5.6, Lymphocytes # (Auto) 1.7, Monocytes # (Auto) 0.7, Eosinophils # (Auto) 0.1, Basophils # (Auto) 0.0, Sodium Level 141, Potassium Level 3.5L, Chloride Level 104, Carbon Dioxide Level 25, Anion Gap 12, Blood Urea Nitrogen 25H, Creatinine 1.68H, Estimat Glomerular Filtration Rate 41, BUN/Creatinine Ratio 15, Glucose Level 129H, Calcium Level 8.9, Phosphorus Level 4.0, Magnesium Level 1.7 Patient resulted labs reviewed. Discharge Home Medications: Active Scripts Active Diltiazem 24Hr Cd (Diltiazem HCl) 120 Mg Cap.er.24h 120 Mg PO DAILY Flomax (Tamsulosin HCl) 0.4 Mg Cap 0.4 Mg PO DAILY@1800 Eliquis (Apixaban) 5 Mg Tablet 5 Mg PO BID Reported Melatonin 5 Mg Capsule 5 Mg PO HS PRN Fluticasone Propionate 16 Gm [place].susp 2 Sprays NS DAILY PRN Amitriptyline HCl 25 Mg Tablet 50 Mg PO HS TAKES 2 (25MG) TABLETS Lovastatin 10 Mg Tablet 5 Mg PO DAILY TAKES 1/2 (10MG) TABLET Cetirizine HCl 10 Mg Tablet 10 Mg PO DAILY Vitamin D (Cholecalciferol (Vitamin D3)) 1,000 Unit Tablet 1,000 Unit PO DAILY Aspir 81 (Aspirin) 81 Mg Tablet.dr 81 Mg PO DAILY Hydrochlorothiazide 25 Mg Tablet 12.5 Mg PO DAILY TAKES 1/2 (25MG) TABLET Paroxetine HCl 40 Mg Tablet 40 Mg PO DAILY Instructions to patient/family Please see electronic discharge instructions given to patient. Clinical Quality Measures DVT/VTE Risk/Contraindication: Risk Factor Score Per Nursin RFS Level Per Nursing on Admit: 2=Moderate Problem Qualifiers (1) Depression: Depression Type: unspecified Qualified Codes: F32.9 - Major depressive disorder, single episode, unspecified DAVON SELLERS MD May 19, 2019 11:56
[2019-05-19] MEDS ORDERED: APIX5TAB PO (11:59)
[2019-05-19] MEDS ORDERED: DILT120C94 PO (11:59)
[2019-05-19] MEDS ORDERED: TAMS0.4C98 PO (11:59)
--- NOTE | 2019-05-19 12:53 | NUR ---
Pt requested visit with this test grader due to past rapport. The pt verbalized anxieties and hopelessness. His recently left and him. He said he would do anything to have her back because he fears loneliness. He recalled his previous divorce and and the 10 year span in between marriages, which he described as lonely and painful. Multiple times he said he thought about killing himself and utilized the suicide hotline since his left. Throughout our conversation he said he could not kill himself because he does not "want to spend eternity in hell." He said "I want to , but I don't." He reaches out to a friend in [place] at times, and calls family when feeling overwhelmed. The pt verbalized openness about regrets and a desire to be closer to God. I provided active listening until his speech patterns quelled and his body relaxed. Offered prayer for purpose, direction, and courage.
--- NOTE | 2019-05-19 14:26 | NUR ---
Report given to JANESSA Pang. Pt placed on telemetry and transport to room 412 via W/C with no difficulties. Personal belongings with patient at time of transfer.
--- NOTE | 2019-05-19 15:16 | NUR ---
paged again per pt's request: He was weeping aloud, saying he wanted to and he could not go on without his ex , Geraldine. He said he is afraid to be alone. He has a gun collection and said he arranged with the police department for all his weapons to be taken from the house. The pt said he only feels comfortable speaking to women. I told him Chaplain Marixa Mejias was supervisor metal furniture fabrication tonight if he wanted to talk to a mechanical operator again. Prayed and again remained with the pt until he demonstrated calmness.
--- NOTE | 2019-05-19 15:46 | NUR ---
received bedside report from Karely RIDDLE icu
[2019-05-19] MEDS: TAMSULOSIN 0.4 MG (FLOMAX) CAP PO SCH (17:26)
--- NOTE | 2019-05-19 21:30 | NUR ---
patient reports he has not urinated in 16 hours, and that he does not feel comfortable. bladder scan showed 457ml. Dr. Simpson called at 2012. ordered prn straight cath when bladder scan shows greater than 500ml, or if it shows greater than 350ml and patient is symptomatic. straight cath done at 2130, pt had 650 output.
[2019-05-19] MEDS: AMITRIPTYLINE 50 MG (ELAVIL) TAB PO SCH (21:55)
[2019-05-19] MEDS: SIMvastatin 10 MG (ZOCOR) TAB PO SCH (21:55)
[2019-05-20] VITALS: BP 163/79
[2019-05-20] MEDS: LORazepam 0.5 MG (ATIVAN) TABLET PO PRN (01:32)
[2019-05-20 04:00] VITALS: BP 152/76
--- NOTE | 2019-05-20 07:28 | Discharge Summary ---
EMELIA MEDRANO,MED STUDENT 05/20/19 7:28am: Diagnosis/Chief Complaint Date of Admission May 18, 2019 at 12:18 Date of Discharge Discharge Date: May 19, 2019 Admission Diagnosis Primary Care No,Local Physician Discharge Diagnosis (1) Atrial fibrillation with RVR Status: Acute (2) Depression Status: Acute (3) Suicidal ideation (4) Essential (primary) hypertension (5) Hypokalemia (6) PBA (pseudobulbar affect) Discharge Summary Procedures/Consulations Consulted Cardiology Consulted [facility] Discharge Physical Exam Allergies: Coded Allergies: No Known Drug Allergies (Unverified , 09/18/13) Vitals & I&Os Vital Signs Date Time Temp Pulse Resp B/P (MAP) Pulse Ox O2 Delivery O2 Flow Rate FiO2 05/20/19 04:00 98.4 66 20 152/76 (101) 94 Room Air Hospital Course Patient presented to the ED 2 days ago with depression and suicidal ideation. Admitted to ICU because ED discovered that the patient was in A-fib with RVR and cardiology was consulted. Patient was given diltiazem and amiodarone for A-fib and started on Eliquis for stoke ppx. Patient was given Ativan, amitriptyline, and paroxetine for depression and anxiety. [facility] was consulted and evaluated the patient d/t depression and suicidal ideations. Patient stayed an extra night d/t worry that he might try and OD on eliquis if he went home yesterday. Labs (last 24 hrs) Microbiology 05/18/19 MRSA Screen - Final, Complete MRSA not isolated Patient resulted labs reviewed. Radiology Reviewed CXR 05/18 and 05/19 = No acute cardiopulmonary process is detected Discharge Home Medications: Active Scripts Active Diltiazem 24Hr Cd (Diltiazem HCl) 120 Mg Cap.er.24h 120 Mg PO DAILY Flomax (Tamsulosin HCl) 0.4 Mg Cap 0.4 Mg PO DAILY@1800 Eliquis (Apixaban) 5 Mg Tablet 5 Mg PO BID Reported Melatonin 5 Mg Capsule 5 Mg PO HS PRN Fluticasone Propionate 16 Gm [place].susp 2 Sprays NS DAILY PRN Amitriptyline HCl 25 Mg Tablet 50 Mg PO HS TAKES 2 (25MG) TABLETS Lovastatin 10 Mg Tablet 5 Mg PO DAILY TAKES 1/2 (10MG) TABLET Cetirizine HCl 10 Mg Tablet 10 Mg PO DAILY Vitamin D (Cholecalciferol (Vitamin D3)) 1,000 Unit Tablet 1,000 Unit PO DAILY Aspir 81 (Aspirin) 81 Mg Tablet. 81 Mg PO DAILY Hydrochlorothiazide 25 Mg Tablet 12.5 Mg PO DAILY TAKES 1/2 (25MG) TABLET Paroxetine HCl 40 Mg Tablet 40 Mg PO DAILY Instructions to patient/family Please see electronic discharge instructions given to patient. Clinical Quality Measures DVT/VTE Risk/Contraindication: Risk Factor Score Per Nursin RFS Level Per Nursing on Admit: 2=Moderate DAVON SELLERS MD 05/20/19 12:46pm: Diagnosis/Chief Complaint Admission Diagnosis Atrial Fibrillation Discharge Diagnosis Atrial Fibrillation with RVR- new onset Discharge Summary Procedures/Consulations Cardiology- Dr Lee Discharge Physical Exam Allergies: Coded Allergies: No Known Drug Allergies (Unverified , 09/18/13) General Appearance: No Apparent Distress, WD/WN Respiratory: Lungs Clear, No Accessory Muscle Use, No Respiratory Distress Cardiovascular: Regular Rate, Rhythm, No Murmur Neurologic/Psychiatric: Alert, Oriented x3 Discussion & Recommendations Discharge Planning: >30 minutes discharge planning Problem Qualifiers (1) Depression: Depression Type: unspecified Qualified Codes: F32.9 - Major depressive disorder, single episode, unspecified EMELIA MEDRANO,MED STUDENT May 20, 2019 7:28 am DAVON SELLERS MD May 20, 2019 12:46 pm
[2019-05-20 08:00] VITALS: BP 148/75
[2019-05-20] MEDS: PARoxetine 20 MG (PAXIL) TAB PO SCH (09:48)
[2019-05-20] MEDS: DILTIAZEM 120 MG (CARDIZEM CD) CAP PO SCH (09:48)
[2019-05-20] MEDS: APIXABAN 5 MG (ELIQUIS) TABLET PO SCH (09:49)
[2019-05-20] MEDS: LORATADINE (CLARITIN) 10 MG TAB PO SCH (09:49)
[2019-05-20] MEDS: ASPIRIN 81 MG CHEW (CHILDREN'S ASA) PO SCH (09:49)
== END 2019-05-20 14:01 | disposition home or self-care (01) | DRG 309 ==
LOC: EDUNIT# 09:49 → ER 09:50 → ICU 12:18 → 4TH 05-19 15:12
PROVIDERS: ADMIT Family Medicine; ATTEND Family Medicine
DX: I48.91 Unspecified atrial fibrillation (principal); F32.9 Major depressive disorder, single episode, unspecified; F41.9 Anxiety disorder, unspecified; R45.851 Suicidal ideations; F48.2 Pseudobulbar affect; I12.9 Hypertensive chronic kidney disease with stage 1 through stage 4 chronic kidney disease, or unspecified chronic kidney disease; N18.9 Chronic kidney disease, unspecified; E78.00 Pure hypercholesterolemia, unspecified; G47.30 Sleep apnea, unspecified; G43.909 Migraine, unspecified, not intractable, without status migrainosus; E87.6 Hypokalemia; Z87.891 Personal history of nicotine dependence
CPT/HCPCS: 36415; 71045; 80048; 80053; 80306; 80320; 80329; 81000; 83735; 84100; 84443; 85025; 87081; 93005; 93041; 93306; 96361; 96365

== ENCOUNTER 2019-05-22 15:37 | Emergency (ER) | payer OTHER ==
[~2019-05-22] VITALS: Ht 180.3 cm; Wt 92.5 kg
[~2019-05-22 15:37] MED LIST changes: +AMIT25TA9 PO; +APIX5TAB PO; +DILT120C94 PO; +FLUT16SP22 NS; +LOVA10TA PO; +MELA5CAP PO; +TAMS0.4C98 PO
[2019-05-22 15:59] LABS: BASOPHILS % (AUTO) 1 % (0-10); EOSINOPHILS # (AUTO) 0.1 10^3/uL (0.0-0.3); EOSINOPHILS % (AUTO) 1 % (0-10); HEMATOCRIT 44 % (40-54); HEMOGLOBIN 14.9 G/DL (13.3-17.7); LYMPHOCYTES # (AUTO) 1.1 X 10^3 (1.0-4.0); LYMPHOCYTES % (AUTO) 17 % (12-44); MEAN CORPUSCULAR HEMOGLOBIN 31 PG (25-34); MEAN CORPUSCULAR HGB CONC 34 G/DL (32-36); MEAN CORPUSCULAR VOLUME 90 FL (80-99); MEAN PLATELET VOLUME 9.8 FL (7.4-10.4); MONOCYTES # (AUTO) 0.5 X 10^3 (0.0-1.0); MONOCYTES % (AUTO) 8 % (0-12); NEUTROPHILS # (AUTO) 4.6 X 10^3 (1.8-7.8); NEUTROPHILS % (AUTO) 73 % (42-75); PLATELET COUNT 229 10^3/uL (130-400); RED CELL DISTRIBUTION WIDTH 13.5 % (10.0-14.5); WHITE BLOOD COUNT 6.3 10^3/uL (4.3-11.0)
[2019-05-22] MEDS ORDERED: ASPIRIN 81 MG CHEW (CHILDREN'S ASA) PO ONE ×2 (16:00→17:15)
--- NOTE | 2019-05-22 16:11 | Diagnostic Imaging Report ---
INDICATION: Chest pain. Portable chest at 04:02 p.m. FINDINGS: Heart size and pulmonary vascularity are normal. Lungs are clear. There are no effusions or pneumothoraces. IMPRESSION: Negative chest. Dictated by: Dictated on workstation # [id number]
[2019-05-22 16:13] LABS: INR 1.2 (0.8-1.4); PROTHROMBIN TIME PATIENT 15.3 SEC (12.2-14.7)
[2019-05-22 16:29] LABS: ALANINE AMINOTRANSFERASE 10 U/L (0-55); ALBUMIN 4.5 GM/DL (3.2-4.5); ALKALINE PHOSPHATASE 63 U/L (40-136); BILIRUBIN,TOTAL 0.5 MG/DL (0.1-1.0); BUN/CREATININE RATIO 14; CALCIUM 9.6 MG/DL (8.5-10.1); CARBON DIOXIDE 27 MMOL/L (21-32); CHLORIDE 104 MMOL/L (98-107); CREATININE SERUM 1.19 MG/DL (0.60-1.30); GFR ESTIMATED > 60; GLUCOSE 99 MG/DL (70-105); MAGNESIUM 1.7 MG/DL (1.6-2.4); POTASSIUM 3.8 MMOL/L (3.6-5.0); SODIUM 140 MMOL/L (135-145); TOTAL PROTEIN 7.2 GM/DL (6.4-8.2)
--- NOTE | 2019-05-22 16:59 | ED Chest Pain ---
General Chief Complaint: Chest Pain Stated Complaint: CHEST DISCOMFOT Nursing Triage Note: PT ARRIVES TO ED AMBULATORY FROM HOME, STATES HE HAS A HX OF A FIB, VERBALIZED CHEST DISCOMFORT ONSET AROUND THIRTY MINUTES MACHINIST AFTER THE PT WAS WALKING TO HIS VEHICLE FROM ANOTHER MEDICAL APPOINTMENT. PT DENIES SOB, VERBALIZES A HX OF ANXIETY WITH RECENT LIFE STRESSORS, DENIES PLANS OF SELF HARM Nursing Sepsis Screen: No Definite Risk Source: patient Exam Limitations: no limitations History of Present Illness Date Seen by Provider: May 22, 2019 Time Seen by Provider: 16:58 Initial Comments To ER with reports of chest pain. He describes this as discomfort, this began earlier this afternoon about 45 minutes prior to arrival while he was leaving the outpatient clinic. He was just discharged from here a few days ago for new onset atrial fibrillation with rapid ventricular response. He presented to that visit with complaints of anxiety and depression, found incidentally to have atrial fibrillation. He is now on Flomax because of some urinary retention, di ltiazem and an anticoagulant. Was not started on anything for mood. Pain is worsened by deep breathing and movement. Timing/Duration: changing over time Severity/Quality: moderate Location: central Radiation: no radiation Activities at Onset: none ASA po MACHINIST: No NTG SL MACHINIST: No Allergies and Home Medications Allergies Coded Allergies: No Known Drug Allergies (Unverified , 09/18/13) Home Medications Amitriptyline HCl 25 Mg Tablet, 50 MG PO HS, (Reported) TAKES 2 (25MG) TABLETS Apixaban 5 Mg Tablet, 5 MG PO BID Prescribed by: DAVON SELLERS on 05/19/19 1159 Aspirin 81 Mg Tablet.dr, 81 MG PO DAILY, (Reported) Cetirizine HCl 10 Mg Tablet, 10 MG PO DAILY, (Reported) Cholecalciferol (Vitamin D3) 1,000 Unit Tablet, 1,000 UNIT PO DAILY, (Reported) Diltiazem HCl 120 Mg Cap.er.24h, 120 MG PO DAILY Prescribed by: DAVON SELLERS on 05/19/19 1159 Fluticasone Propionate 16 Gm [place].susp, 2 SPRAYS NS DAILY PRN for ALLERGIES, (Reported) Lovastatin 10 Mg Tablet, 5 MG PO DAILY, (Reported) TAKES 1/2 (10MG) TABLET Melatonin 5 Mg Capsule, 5 MG PO HS PRN for SLEEP, (Reported) Paroxetine HCl 40 Mg Tablet, 40 MG PO DAILY, (Reported) Tamsulosin HCl 0.4 Mg Cap, 0.4 MG PO DAILY@1800 Prescribed by: DAVON SELLERS on 05/19/19 1159 Patient Home Medication List Home Medication List Reviewed: Yes Review of Systems Review of Systems Constitutional: see HPI EENTM: No Symptoms Reported Respiratory: No Symptoms Reported Cardiovascular: No Symptoms Reported Gastrointestinal: No Symptoms Reported Genitourinary: No Symptoms Reported Musculoskeletal: no symptoms reported Skin: no symptoms reported Psychiatric/Neurological: No Symptoms Reported Endocrine: No Symptoms Reported Hematologic/Lymphatic: No Symptoms Reported Past Sohedvp-Upyede-Ruedtc Hx Patient Social History Alcohol Use: Denies Use Recreational Drug Use: No Smoking Status: Never a Smoker 2nd Hand Smoke Exposure: No Recent Foreign Travel: No Contact w/Someone Who Travel: No Recent Infectious Disease Expo: No Recent Hopitalizations: No Immunizations Up To Date Tetanus Booster (TDap): Less than 5yrs Date of Pneumonia Vaccine: May 18, 2017 Date of Influenza Vaccine: Aug 04, 2013 Seasonal Allergies Seasonal Allergies: Yes Past Medical History Surgeries: Yes (WISDOM TEETH) Respiratory: Yes Sleep Apnea Currently Using BIPAP: Yes Cardiac: Yes High Cholesterol, Hypertension Neurological: No Headaches /Migraines Genitourinary: No Gastrointestinal: Yes (rectal bleeding) Musculoskeletal: No Back Injury Endocrine: No HEENT: No Cancer: No Psychosocial: Yes Anxiety, Depression Integumentary: No Blood Disorders: No Family Medical History No Pertinent Family Hx Physical Exam Vital Signs Vital Signs - First Documented 05/22/19 15:38 Temp 97.9 Pulse 90 Resp 22 B/P (MAP) 156/85 (108) Pulse Ox 97 O2 Delivery Room Air FiO2 97 Capillary Refill : Less Than 3 Seconds Height, Weight, BMI Height: 5'11.00" Weight: 204lbs. 0.1oz. 92.907178hd; 30.7 BMI Method:Stated General Appearance: No Apparent Distress, WD/WN HEENT: PERRL/EOMI, TMs Normal Respiratory: Normal Breath Sounds, No Accessory Muscle Use, No Respiratory Distress Gastrointestinal: Non Tender, Soft Extremity: Normal Capillary Refill, Normal Inspection Neurologic/Psychiatric: Alert, Oriented x3 Skin: Normal Color, Warm/Dry Progress/Results/Core Measures Results/Orders Lab Results Laboratory Tests Test 05/22/19 15:45 05/22/19 17:45 Range/Units White Blood Count 6.3 4.3-11.0 10^3/uL Red Blood Count 4.86 4.35-5.85 10^6/uL Hemoglobin 14.9 13.3-17.7 G/DL Hematocrit 44 40-54 % Mean Corpuscular Volume 90 80-99 FL Mean Corpuscular Hemoglobin 31 25-34 PG Mean Corpuscular Hemoglobin Concent 34 32-36 G/DL Red Cell Distribution Width 13.5 10.0-14.5 % Platelet Count 229 130-400 10^3/uL Mean Platelet Volume 9.8 7.4-10.4 FL Neutrophils (%) (Auto) 73 42-75 % Lymphocytes (%) (Auto) 17 12-44 % Monocytes (%) (Auto) 8 0-12 % Eosinophils (%) (Auto) 1 0-10 % Basophils (%) (Auto) 1 0-10 % Neutrophils # (Auto) 4.6 1.8-7.8 X 10^3 Lymphocytes # (Auto) 1.1 1.0-4.0 X 10^3 Monocytes # (Auto) 0.5 0.0-1.0 X 10^3 Eosinophils # (Auto) 0.1 0.0-0.3 10^3/uL Basophils # (Auto) 0.0 0.0-0.1 10^3/uL Prothrombin Time 15.3 H 12.2-14.7 SEC INR Comment 1.2 0.8-1.4 Activated Partial Thromboplast Time 33 24-35 SEC Sodium Level 140 135-145 MMOL/L Potassium Level 3.8 3.6-5.0 MMOL/L Chloride Level 104 98-107 MMOL/L Carbon Dioxide Level 27 21-32 MMOL/L Anion Gap 9 5-14 MMOL/L Blood Urea Nitrogen 17 7-18 MG/DL Creatinine 1.19 0.60-1.30 MG/DL Estimat Glomerular Filtration Rate > 60 BUN/Creatinine Ratio 14 Glucose Level 99 70-105 MG/DL Calcium Level 9.6 8.5-10.1 MG/DL Corrected Calcium 9.2 8.5-10.1 MG/DL Magnesium Level 1.7 1.6-2.4 MG/DL Total Bilirubin 0.5 0.1-1.0 MG/DL Aspartate Amino Transf (AST/SGOT) 18 5-34 U/L Alanine Aminotransferase (ALT/SGPT) 10 0-55 U/L Alkaline Phosphatase 63 40-136 U/L Myoglobin 57.2 10.0-92.0 NG/ML Troponin I < 0.028 < 0.028 <0.028 NG/ML Total Protein 7.2 6.4-8.2 GM/DL Albumin 4.5 3.2-4.5 GM/DL My Orders Orders - RIO SÁNCHEZ APRN Cbc With Automated Diff (05/22/19 15:48) Magnesium (05/22/19 15:48) Chest 1 View, Ap/Pa Only (05/22/19 15:48) Ekg Tracing (05/22/19 15:48) Cardiac Profile 1 (05/22/19 15:48) Comprehensive Metabolic Panel (05/22/19 15:48) Myoglobin Serum (05/22/19 15:48) Protime With Inr (05/22/19 15:48) Partial Thromboplastin Time (05/22/19 15:48) O2 (05/22/19 15:48) Monitor-Rhythm Ecg Trace Only (05/22/19 15:48) Lipid Panel (05/23/19 06:00) Ed Iv/Invasive Line Start (05/22/19 15:48) Aspirin Chewable Tablet (Baby Aspirin Ch (05/22/19 16:00) Alprazolam Tablet (Xanax Tablet) (05/22/19 17:15) Aspirin Chewable Tablet (Baby Aspirin Ch (05/22/19 17:15) Troponin I (05/22/19 17:36) Medications Given in ED Current Medications Medications Dose Ordered Sig/Seamus Route Start Time Stop Time Status Last Admin Dose Admin Aspirin 243 mg ONCE ONCE PO 05/22/19 17:15 05/22/19 17:16 DC 05/22/19 15:56 243 MG Vital Signs/I&O 05/22/19 05/22/19 05/22/19 15:38 15:38 15:40 Temp 97.9 Pulse 90 Resp 22 B/P (MAP) 156/85 (108) Pulse Ox 97 97 O2 Delivery Room Air Room Air Room Air FiO2 97 Blood Pressure Mean: 108 Departure Impression Primary Impression: Chest pain Qualified Codes: R07.9 - Chest pain, unspecified Additional Impression: Anxiety Disposition: 01 HOME, SELF-CARE Condition: Stable Departure-Patient Inst. Decision time for Depature: 18:15 Referrals: NO,LOCAL PHYSICIAN (PCP) Primary Care Physician MELODY [place] (Family) Primary Care Physician Patient Instructions: Chest Pain (DC), Anxiety, Adult (DC) Add. Discharge Instructions: . Medication as directed 2. Return to ER for any concerns All discharge instructions reviewed with patient and/or family. Voiced understanding. Scripts Alprazolam (Xanax) 0.5 Mg Tablet 0.5 MG PO HS PRN for ANXIETY, #10 TAB Prov: RIO SÁNCHEZ APRN 05/22/19 RIO SÁNCHEZ APRN May 22, 2019 16:59
[2019-05-22] MEDS ORDERED: ALPRAZolam 0.5 MG (XANAX) TAB PO SCH (17:15)
[2019-05-22] MEDS ORDERED: ALPR0.5T PO (18:16)
[2019-05-22 18:53] VITALS: BP 134/87
== END 2019-05-22 18:53 | disposition home or self-care (01) ==
LOC: EDUNIT# 15:37 → ER 15:38
DX: F41.9 Anxiety disorder, unspecified (principal); R07.89 Other chest pain; I48.91 Unspecified atrial fibrillation; F32.9 Major depressive disorder, single episode, unspecified; G47.30 Sleep apnea, unspecified; I10 Essential (primary) hypertension; E78.00 Pure hypercholesterolemia, unspecified; G43.909 Migraine, unspecified, not intractable, without status migrainosus; Z79.01 Long term (current) use of anticoagulants; Z79.82 Long term (current) use of aspirin; Z79.52 Long term (current) use of systemic steroids
CPT/HCPCS: 36415; 71045; 80053; 83735; 83874; 84484; 85025; 85610; 85730; 93005; 93041

== ENCOUNTER 2019-05-29 08:28 | Outpatient (RCR) | payer OTHER ==
[~2019-05-29 08:28] MED LIST changes: +ALPR0.5T PO
[2019-06-03] MEDS ORDERED: CLON0.5T PO (15:33)
== END 2019-08-27 | disposition home or self-care (01) ==
LOC: CARD 08:28
PROVIDERS: ATTEND Internal Medicine Interventional Cardiology
DX: I48.0 Paroxysmal atrial fibrillation (principal)
CPT/HCPCS: 93270

== ENCOUNTER 2019-05-30 11:52 | Emergency (ER) | payer OTHER, MEDICARE ==
[~2019-05-30] VITALS: Ht 180.3 cm; Wt 92.5 kg
--- NOTE | 2019-05-30 12:09 | ED General ---
General Stated Complaint: SUICIDAL IDEATION Source of Information: Patient Exam Limitations: No Limitations History of Present Illness Date Seen by Provider: May 30, 2019 Time Seen by Provider: 12:06 Initial Comments To er tearful c/o suicidal thoughts once again. Has been here frequently for this in recent months. Initially stated that she would not actually harm himself because he is protestant and doesn't want to spend eternity and hell, however states that his depression and suicidal thoughts are getting worse. he has been speaking with the [email or web address] and is on the phone with them on arrival to ER. Timing/Duration: Getting Worse Severity: Moderate Allergies and Home Medications Allergies Coded Allergies: No Known Drug Allergies (Unverified , 09/18/13) Home Medications Alprazolam 0.5 Mg Tablet, 0.5 MG PO HS PRN for ANXIETY Prescribed by: RIO SÁNCHEZ on 05/22/19 181 Amitriptyline HCl 25 Mg Tablet, 50 MG PO HS, (Reported) TAKES 2 (25MG) TABLETS Apixaban 5 Mg Tablet, 5 MG PO BID Prescribed by: DAVON SELLERS on 05/19/19 115 Aspirin 81 Mg Tablet.dr, 81 MG PO DAILY, (Reported) Cetirizine HCl 10 Mg Tablet, 10 MG PO DAILY, (Reported) Cholecalciferol (Vitamin D3) 1,000 Unit Tablet, 1,000 UNIT PO DAILY, (Reported) Diltiazem HCl 120 Mg Cap.er.24h, 120 MG PO DAILY Prescribed by: DAVON SELLERS on 05/19/19 115 Fluticasone Propionate 16 Gm [place].susp, 2 SPRAYS NS DAILY PRN for ALLERGIES, (Reported) Lovastatin 10 Mg Tablet, 5 MG PO DAILY, (Reported) TAKES 1/2 (10MG) TABLET Melatonin 5 Mg Capsule, 5 MG PO HS PRN for SLEEP, (Reported) Paroxetine HCl 40 Mg Tablet, 40 MG PO DAILY, (Reported) Tamsulosin HCl 0.4 Mg Cap, 0.4 MG PO DAILY@1800 Prescribed by: DAVON SELLERS on 05/19/19 1159 Patient Home Medication List Home Medication List Reviewed: Yes Review of Systems Review of Systems Constitutional: see HPI EENTM: see HPI Respiratory: no symptoms reported Cardiovascular: no symptoms reported Genitourinary: no symptoms reported Musculoskeletal: no symptoms reported Skin: no symptoms reported Psychiatric/Neurological: See HPI, Anxiety, Depressed, Emotional Problems Hematologic/Lymphatic: No Symptoms Reported Immunological/Allergic: no symptoms reported Past Pvyrubq-Itdyto-Rfpvct Hx Patient Social History 2nd Hand Smoke Exposure: No Recent Foreign Travel: No Contact w/Someone Who Travel: No Recent Hopitalizations: No Immunizations Up To Date Tetanus Booster (TDap): Less than 5yrs Date of Pneumonia Vaccine: May 18, 2017 Date of Influenza Vaccine: Aug 04, 2013 Seasonal Allergies Seasonal Allergies: Yes Past Medical History Surgeries: Yes (WISDOM TEETH) Respiratory: Yes Sleep Apnea Currently Using BIPAP: Yes Cardiac: Yes High Cholesterol, Hypertension Neurological: No Headaches /Migraines Genitourinary: No Gastrointestinal: Yes (rectal bleeding) Musculoskeletal: No Back Injury Endocrine: No HEENT: No Cancer: No Psychosocial: Yes Anxiety, Depression Integumentary: No Blood Disorders: No Family Medical History No Pertinent Family Hx Physical Exam Vital Signs Vital Signs - First Documented 05/30/19 12:07 Temp 97.8 Pulse 104 Resp 22 B/P (MAP) 145/90 (108) Pulse Ox 98 O2 Delivery Room Air Capillary Refill : Height, Weight, BMI Height: 5'11.00" Weight: 204lbs. 0.1oz. 92.150577io; 30.7 BMI Method:Stated General Appearance: No Apparent Distress, WD/WN Eyes: Bilateral Eye Normal Inspection, Bilateral Eye PERRL, Bilateral Eye EOMI HEENT: PERRL/EOMI, TMs Normal Neck: Full Range of Motion, Normal Inspection Respiratory: No Accessory Muscle Use, No Respiratory Distress Cardiovascular: Regular Rate, Rhythm, No Edema, Normal Peripheral Pulses Gastrointestinal: Normal Bowel Sounds, Non Tender, Soft Extremity: Normal Capillary Refill, Normal Inspection Neurologic/Psychiatric: Alert, Oriented x3, No Motor/Sensory Deficits Skin: Normal Color, Warm/Dry Progress/Results/Core Measures Suspected Sepsis SIRS Temperature: Pulse: Respiratory Rate: Laboratory Tests 05/30/19 12:30: White Blood Count 7.8 Blood Pressure / Mean: Laboratory Tests 05/30/19 12:30: Creatinine 1.38H, Platelet Count 237, Total Bilirubin 0.5 Results/Orders Lab Results Laboratory Tests Test 05/30/19 12:30 05/30/19 15:40 Range/Units White Blood Count 7.8 4.3-11.0 10^3/uL Red Blood Count 4.74 4.35-5.85 10^6/uL Hemoglobin 14.6 13.3-17.7 G/DL Hematocrit 43 40-54 % Mean Corpuscular Volume 90 80-99 FL Mean Corpuscular Hemoglobin 31 25-34 PG Mean Corpuscular Hemoglobin Concent 34 32-36 G/DL Red Cell Distribution Width 13.4 10.0-14.5 % Platelet Count 237 130-400 10^3/uL Mean Platelet Volume 9.6 7.4-10.4 FL Neutrophils (%) (Auto) 79 H 42-75 % Lymphocytes (%) (Auto) 13 12-44 % Monocytes (%) (Auto) 8 0-12 % Eosinophils (%) (Auto) 1 0-10 % Basophils (%) (Auto) 0 0-10 % Neutrophils # (Auto) 6.1 1.8-7.8 X 10^3 Lymphocytes # (Auto) 1.0 1.0-4.0 X 10^3 Monocytes # (Auto) 0.6 0.0-1.0 X 10^3 Eosinophils # (Auto) 0.0 0.0-0.3 10^3/uL Basophils # (Auto) 0.0 0.0-0.1 10^3/uL Sodium Level 139 135-145 MMOL/L Potassium Level 3.3 L 3.6-5.0 MMOL/L Chloride Level 103 98-107 MMOL/L Carbon Dioxide Level 22 21-32 MMOL/L Anion Gap 14 5-14 MMOL/L Blood Urea Nitrogen 20 H 7-18 MG/DL Creatinine 1.38 H 0.60-1.30 MG/DL Estimat Glomerular Filtration Rate 52 BUN/Creatinine Ratio 14 Glucose Level 96 70-105 MG/DL Calcium Level 9.4 8.5-10.1 MG/DL Corrected Calcium 9.2 8.5-10.1 MG/DL Total Bilirubin 0.5 0.1-1.0 MG/DL Aspartate Amino Transf (AST/SGOT) 15 5-34 U/L Alanine Aminotransferase (ALT/SGPT) 13 0-55 U/L Alkaline Phosphatase 66 40-136 U/L Total Protein 7.0 6.4-8.2 GM/DL Albumin 4.3 3.2-4.5 GM/DL Salicylates Level < 5.0 L 5.0-20.0 MG/DL Acetaminophen Level < 10 L 10-30 UG/ML Serum Alcohol < 10 <10 MG/DL Urine Color YELLOW Urine Clarity CLEAR Urine pH 5 5-9 Urine Specific [place] 1.020 1.016-1.022 Urine Protein NEGATIVE NEGATIVE Urine Glucose (UA) NEGATIVE NEGATIVE Urine Ketones NEGATIVE NEGATIVE Urine Nitrite NEGATIVE NEGATIVE Urine Bilirubin NEGATIVE NEGATIVE Urine Urobilinogen NORMAL NORMAL MG/DL Urine Leukocyte Esterase 1+ H NEGATIVE Urine RBC (Auto) NEGATIVE NEGATIVE Urine RBC NONE /HPF Urine WBC 10-25 H /HPF Urine Squamous Epithelial Cells NONE /HPF Urine Crystals NONE /LPF Urine Bacteria TRACE /HPF Urine Casts PRESENT /LPF Urine Hyaline Casts RARE /LPF Urine Mucus MODERATE H /LPF Urine Culture Indicated YES Urine Opiates Screen NEGATIVE NEGATIVE Urine Oxycodone Screen NEGATIVE NEGATIVE Urine Methadone Screen NEGATIVE NEGATIVE Urine Propoxyphene Screen NEGATIVE NEGATIVE Urine Barbiturates Screen NEGATIVE NEGATIVE Ur Tricyclic Antidepressants Screen POSITIVE H NEGATIVE Urine Phencyclidine Screen NEGATIVE NEGATIVE Urine Amphetamines Screen NEGATIVE NEGATIVE Urine Methamphetamines Screen NEGATIVE NEGATIVE Urine Benzodiazepines Screen POSITIVE H NEGATIVE Urine Cocaine Screen NEGATIVE NEGATIVE Urine Cannabinoids Screen NEGATIVE NEGATIVE My Orders Orders - RIO SÁNCHEZ [employer] SUPERVISOR Cbc With Automated Diff (05/30/19 12:05) Comprehensive Metabolic Panel (05/30/19 12:05) Ua Culture If Indicated (05/30/19 12:05) Drug Screen Stat (Urine) (05/30/19 12:05) Alcohol (05/30/19 12:05) Salicylate (05/30/19 12:05) Acetaminophen (05/30/19 12:05) Ekg Tracing (05/30/19 13:09) General/Regular (05/30/19 Lunch) Urine Culture (05/30/19 15:40) Vital Signs/I&O 05/30/19 12:07 Temp 97.8 Pulse 104 Resp 22 B/P (MAP) 145/90 (108) Pulse Ox 98 O2 Delivery Room Air Capillary Refill : Departure Communication (Admissions) Patient has requested both during today's visit and previous visits to have female nurses to "speak to in private".. I spoke with Dr. Guadarrama at the [facility] in [place]. He has accepted the patient. The patient will be transported by EMS (as there are two psych pts here now who will both need transported at roughly the same time for inpatient at different facilities), I've spoken with shubham Bai who then spoke with Marixa from Billing at [facility] who then spoke with [facility] directly in regards to reimbursement. I do not know the details of that conversation. Either way EMS has agreed to transport the patient, they'll go through the emergency room where they'll olive picker a police escort to floor 10. I do not have room number, that will be given on arrival. Impression Primary Impression: Depression Qualified Codes: F32.9 - Major depressive disorder, single episode, unspecified Additional Impression: Suicidal thoughts Disposition: 65 XFER TO PSYCH HOSP/UNIT Condition: Stable Departure-Patient Inst. Referrals: NO,LOCAL PHYSICIAN (PCP) Primary Care Physician MELODY [place]NADA-ELECTRICIAN TECHNICIAN (Family) Primary Care Physician RIO SÁNCHEZ APRN May 30, 2019 12:09
--- NOTE | 2019-05-30 12:11 | NUR ---
PT TAKEN TO RM 10 PER RIO SÁNCHEZ.
[2019-05-30 12:36] LABS: BASOPHILS % (AUTO) 0 % (0-10); EOSINOPHILS % (AUTO) 1 % (0-10); HEMATOCRIT 43 % (40-54); HEMOGLOBIN 14.6 G/DL (13.3-17.7); LYMPHOCYTES % (AUTO) 13 % (12-44); MEAN CORPUSCULAR HEMOGLOBIN 31 PG (25-34); MEAN CORPUSCULAR HGB CONC 34 G/DL (32-36); MEAN CORPUSCULAR VOLUME 90 FL (80-99); MEAN PLATELET VOLUME 9.6 FL (7.4-10.4); MONOCYTES # (AUTO) 0.6 X 10^3 (0.0-1.0); MONOCYTES % (AUTO) 8 % (0-12); NEUTROPHILS # (AUTO) 6.1 X 10^3 (1.8-7.8); NEUTROPHILS % (AUTO) 79 % (42-75); PLATELET COUNT 237 10^3/uL (130-400); RED CELL DISTRIBUTION WIDTH 13.4 % (10.0-14.5); WHITE BLOOD COUNT 7.8 10^3/uL (4.3-11.0)
--- NOTE | 2019-05-30 12:37 | NUR ---
PT UNABLE TO URINATE AT THIS TIME.
[2019-05-30 12:58] LABS: ALANINE AMINOTRANSFERASE 13 U/L (0-55); ALBUMIN 4.3 GM/DL (3.2-4.5); ALKALINE PHOSPHATASE 66 U/L (40-136); BILIRUBIN,TOTAL 0.5 MG/DL (0.1-1.0); BUN/CREATININE RATIO 14; CALCIUM 9.4 MG/DL (8.5-10.1); CARBON DIOXIDE 22 MMOL/L (21-32); CHLORIDE 103 MMOL/L (98-107); CREATININE SERUM 1.38 MG/DL (0.60-1.30); GFR ESTIMATED 52; GLUCOSE 96 MG/DL (70-105); POTASSIUM 3.3 MMOL/L (3.6-5.0); SALICYLATE < 5.0 MG/DL (5.0-20.0); SODIUM 139 MMOL/L (135-145)
--- NOTE | 2019-05-30 13:00 | NUR ---
PT MORE RELAXED, STILL UNABLE TO URINATE.
[2019-05-30 13:04] LABS: ACETAMINOPHEN < 10 UG/ML (10-30)
--- NOTE | 2019-05-30 13:15 | NUR ---
PT HAS NO NEEDS AT THIS TIME. DRINKING WATER.
--- NOTE | 2019-05-30 13:30 | NUR ---
PT HAS NO NEEDS AT THIS TIME. STILL UNABLE TO URINATE, DRINKING A COKE ALONG WITH WATER. STATES HE HAS HAD DIFFICULTY URINATING LATELY, REFUSES TO LET US STRAIGHT CATH FOR UA.
--- NOTE | 2019-05-30 13:45 | NUR ---
PT HAS NO NEEDS AT THIS TIME.
--- NOTE | 2019-05-30 14:00 | NUR ---
PT HAS NO NEEDS AT THIS TIME. STILL UNABLE TO URINATE.
--- NOTE | 2019-05-30 14:15 | NUR ---
PT HAS NO NEEDS AT THIS TIME.
--- NOTE | 2019-05-30 14:30 | NUR ---
PT HAS NO NEEDS AT THIS TIME.
--- NOTE | 2019-05-30 14:39 | NUR ---
PT NOW WANT TO ORDER A FOOD TRAY.
--- NOTE | 2019-05-30 15:00 | NUR ---
PT HAS NO NEEDS AT THIS TIME.
--- NOTE | 2019-05-30 15:15 | NUR ---
PT'S FOOD TRAY HAS BEEN ORDERED, NO NEEDS AT THIS TIME.
--- NOTE | 2019-05-30 15:23 | NUR ---
Pt states he became afraid that he would harm himself. He visualized himself hanging himself or dying in his vehicle. I encouraged the sharing of feelings, including fear, anxiety, and grief over current divorce proceedings. We explored sources of hope and discussed his concerns. I offered active listening and provided calming presence. The pt said he was "not a baptist man and has not gone to yazidi, but could you pray with me." We prayed together, after which he also requested prayer for his , too. The pt said he thinks he is going to [facility] [place]. At the close of our visit, the pt requested to be made private for legal reasons. I communicated this request to the nurse.
[2019-05-30 15:47] LABS: BILIRUBIN,URINE NEGATIVE (NEGATIVE); CLARITY,URINE CLEAR; COLOR,URINE YELLOW; GLUCOSE, URINE (UA) NEGATIVE (NEGATIVE); KETONES,URINE NEGATIVE (NEGATIVE); LEUKOCYTE ESTERASE ,URINE 1+ (NEGATIVE); NITRITE,URINE NEGATIVE (NEGATIVE); PH,URINE 5 (5-9); PROTEIN,URINE NEGATIVE (NEGATIVE); UROBILINOGEN,URINE NORMAL (NORMAL)
[2019-05-30 16:00] LABS: BACTERIA,URINE TRACE /HPF; HYALINE CASTS, URINE RARE /LPF
--- NOTE | 2019-05-30 16:00 | NUR ---
FOOD TRAY NEVER ARRIVED IN ER. CALLED [facility] AND ASKED IF IT WAS COMING AND THEY SAID THERE WAS NO ORDER. CALLED [phone] BACK AND THE PERSON I SPOKE WITH SAID THEY DO NOT HAVE A RECORD OF ORDERING A TRAY. THE EMS CREW IS HERE TO ESE TEACHER THE PT SO WE CALLED THE [facility] AND THEY SAID THEY COULD GET A COLD TRAY QUICKLY. THIS RN WENT DOWN AND PICKED IT UP.
[2019-05-30 16:01] LABS: AMPHETAMINE SCREEN, URINE NEGATIVE (NEGATIVE); BARBITURATE SCREEN URINE NEGATIVE (NEGATIVE); BENZODIAZEPINES SCREEN URINE POSITIVE (NEGATIVE); CANNABINOID SCREEN, URINE NEGATIVE (NEGATIVE); COCAINE SCREEN URINE NEGATIVE (NEGATIVE); METHADONE STAT NEGATIVE (NEGATIVE); METHAMPHETAMINE SCREEN URINE S NEGATIVE (NEGATIVE); OPIATE SCREEN URINE NEGATIVE (NEGATIVE); OXYCODONE STAT NEGATIVE (NEGATIVE); PROPOXYPHENE STAT NEGATIVE (NEGATIVE); TRICYCLIC ANTIDEPRESSANTS SCRE POSITIVE (NEGATIVE)
[2019-05-30 16:15] VITALS: BP 135/89
== END 2019-05-30 16:15 ==
LOC: EDUNIT# 11:52 → ER 11:53
DX: F32.9 Major depressive disorder, single episode, unspecified (principal); R45.851 Suicidal ideations; G47.30 Sleep apnea, unspecified; I10 Essential (primary) hypertension; E78.00 Pure hypercholesterolemia, unspecified; F41.9 Anxiety disorder, unspecified; Z79.82 Long term (current) use of aspirin; Z79.52 Long term (current) use of systemic steroids
CPT/HCPCS: 36415; 80053; 80306; 80320; 80329; 81000; 85025; 87088; 93005

== ENCOUNTER 2019-06-03 14:20 | Emergency (ER) | payer OTHER, MEDICARE ==
[~2019-06-03] VITALS: Ht 180.3 cm; Wt 90.7 kg
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
[2019-06-03] MEDS ORDERED: LORazepam INJ 2 MG/ML (ATIVAN) VIAL IVP PRN (14:45)
[2019-06-03 14:55] LABS: BASOPHILS % (AUTO) 0 % (0-10); EOSINOPHILS # (AUTO) 0.1 10^3/uL (0.0-0.3); EOSINOPHILS % (AUTO) 1 % (0-10); HEMATOCRIT 45 % (40-54); LYMPHOCYTES # (AUTO) 1.1 X 10^3 (1.0-4.0); LYMPHOCYTES % (AUTO) 14 % (12-44); MEAN CORPUSCULAR HEMOGLOBIN 30 PG (25-34); MEAN CORPUSCULAR HGB CONC 33 G/DL (32-36); MEAN CORPUSCULAR VOLUME 91 FL (80-99); MONOCYTES # (AUTO) 0.6 X 10^3 (0.0-1.0); MONOCYTES % (AUTO) 7 % (0-12); NEUTROPHILS # (AUTO) 5.9 X 10^3 (1.8-7.8); NEUTROPHILS % (AUTO) 77 % (42-75); PLATELET COUNT 244 10^3/uL (130-400); RED CELL DISTRIBUTION WIDTH 13.3 % (10.0-14.5); WHITE BLOOD COUNT 7.6 10^3/uL (4.3-11.0)
--- NOTE | 2019-06-03 15:02 | Diagnostic Imaging Report ---
INDICATION: Chest pain and diaphoresis. COMPARISON: 05/22/2019. DISCUSSION: Single portable upright view of the chest was obtained. No adverse interval change. Stable normal heart size. No focal consolidation, pleural fluid, or pneumothorax. No osseous abnormality. IMPRESSION: 1. Negative chest. Dictated by: Dictated on workstation # [id number]
[2019-06-03 15:09] LABS: INR 1.1 (0.8-1.4); PROTHROMBIN TIME PATIENT 15.1 SEC (12.2-14.7)
[2019-06-03 15:19] LABS: ALANINE AMINOTRANSFERASE 12 U/L (0-55); ALBUMIN 4.3 GM/DL (3.2-4.5); ALKALINE PHOSPHATASE 79 U/L (40-136); BILIRUBIN,TOTAL 0.5 MG/DL (0.1-1.0); BUN/CREATININE RATIO 12; CALCIUM 9.5 MG/DL (8.5-10.1); CARBON DIOXIDE 23 MMOL/L (21-32); CHLORIDE 106 MMOL/L (98-107); CREATININE SERUM 1.39 MG/DL (0.60-1.30); GFR ESTIMATED 51; GLUCOSE 127 MG/DL (70-105); MAGNESIUM 1.9 MG/DL (1.6-2.4); POTASSIUM 3.6 MMOL/L (3.6-5.0); SODIUM 141 MMOL/L (135-145); TOTAL PROTEIN 7.3 GM/DL (6.4-8.2)
[2019-06-03] MEDS ORDERED: CLON0.5T PO (15:33)
[2019-06-03 17:40] VITALS: BP 135/82
== END 2019-06-03 17:40 | disposition home or self-care (01) ==
LOC: EDUNIT# 14:20 → ER 14:22
DX: F41.9 Anxiety disorder, unspecified (principal); F32.9 Major depressive disorder, single episode, unspecified; I48.91 Unspecified atrial fibrillation; G47.30 Sleep apnea, unspecified; I10 Essential (primary) hypertension; E78.00 Pure hypercholesterolemia, unspecified; G43.909 Migraine, unspecified, not intractable, without status migrainosus; Z79.82 Long term (current) use of aspirin
CPT/HCPCS: 36415; 71045; 80053; 83735; 83874; 83880; 84484; 85025; 85610; 85730; 93005; 93041

== ENCOUNTER 2019-08-22 16:31 | Emergency (ER) | payer OTHER ==
[~2019-08-22] VITALS: Ht 180 cm; Wt 97.0 kg
[~2019-08-22 16:31] MED LIST changes: +CLON0.5T PO
[2019-08-22] MEDS ORDERED: ASPIRIN 81 MG CHEW (CHILDREN'S ASA) PO ONE (17:00)
--- NOTE | 2019-08-22 17:11 | Diagnostic Imaging Report ---
INDICATION: Increasing shortness of air with exertion. TIME OF EXAM: 5:01 p.m. COMPARISON: Correlation is made with prior chest from 06/03/2019. FINDINGS: The heart does appear to be mildly enlarged. Lungs are clear. No infiltrate or failure is seen. There is no effusion or pneumothorax. IMPRESSION: No acute cardiopulmonary process is detected. Dictated by: Dictated on workstation # [id number]
[2019-08-22 17:14] LABS: BASOPHILS # (AUTO) 0.1 10^3/uL (0.0-0.1); BASOPHILS % (AUTO) 1 % (0-10); EOSINOPHILS # (AUTO) 0.1 10^3/uL (0.0-0.3); EOSINOPHILS % (AUTO) 2 % (0-10); HEMATOCRIT 40 % (40-54); HEMOGLOBIN 13.7 G/DL (13.3-17.7); LYMPHOCYTES # (AUTO) 1.4 X 10^3 (1.0-4.0); LYMPHOCYTES % (AUTO) 20 % (12-44); MEAN CORPUSCULAR HEMOGLOBIN 30 PG (25-34); MEAN CORPUSCULAR HGB CONC 34 G/DL (32-36); MEAN CORPUSCULAR VOLUME 89 FL (80-99); MEAN PLATELET VOLUME 9.7 FL (7.4-10.4); MONOCYTES # (AUTO) 0.6 X 10^3 (0.0-1.0); MONOCYTES % (AUTO) 9 % (0-12); NEUTROPHILS # (AUTO) 4.8 X 10^3 (1.8-7.8); NEUTROPHILS % (AUTO) 69 % (42-75); PLATELET COUNT 198 10^3/uL (130-400); RED CELL DISTRIBUTION WIDTH 12.9 % (10.0-14.5); WHITE BLOOD COUNT 6.9 10^3/uL (4.3-11.0)
[2019-08-22 17:34] LABS: ALANINE AMINOTRANSFERASE 18 U/L (0-55); ALBUMIN 4.1 GM/DL (3.2-4.5); ALKALINE PHOSPHATASE 62 U/L (40-136); BILIRUBIN,TOTAL 0.4 MG/DL (0.1-1.0); BUN/CREATININE RATIO 14; CALCIUM 9.1 MG/DL (8.5-10.1); CARBON DIOXIDE 25 MMOL/L (21-32); CHLORIDE 104 MMOL/L (98-107); CREATININE SERUM 1.36 MG/DL (0.60-1.30); GFR ESTIMATED 52; GLUCOSE 97 MG/DL (70-105); POTASSIUM 3.6 MMOL/L (3.6-5.0); SODIUM 140 MMOL/L (135-145); TOTAL PROTEIN 6.5 GM/DL (6.4-8.2)
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
[2019-08-22] MEDS ORDERED: NS IV 1000 ML 1,000 ML IV SCH (18:10)
[2019-08-22 18:27] LABS: BILIRUBIN,URINE NEGATIVE (NEGATIVE); CLARITY,URINE CLEAR; COLOR,URINE YELLOW; GLUCOSE, URINE (UA) NEGATIVE (NEGATIVE); KETONES,URINE NEGATIVE (NEGATIVE); LEUKOCYTE ESTERASE ,URINE NEGATIVE (NEGATIVE); NITRITE,URINE NEGATIVE (NEGATIVE); PH,URINE 6.5 (5-9); PROTEIN,URINE NEGATIVE (NEGATIVE)
[2019-08-22 18:45] LABS: BACTERIA,URINE NEGATIVE /HPF
--- NOTE | 2019-08-22 18:56 | NUR ---
REPORT TO MARGARET RIDDLE
[2019-08-22 19:19] LABS: AMPHETAMINE SCREEN, URINE NEGATIVE (NEGATIVE); BARBITURATE SCREEN URINE NEGATIVE (NEGATIVE); BENZODIAZEPINES SCREEN URINE NEGATIVE (NEGATIVE); CANNABINOID SCREEN, URINE NEGATIVE (NEGATIVE); COCAINE SCREEN URINE NEGATIVE (NEGATIVE); METHADONE STAT NEGATIVE (NEGATIVE); METHAMPHETAMINE SCREEN URINE S NEGATIVE (NEGATIVE); OPIATE SCREEN URINE NEGATIVE (NEGATIVE); OXYCODONE STAT NEGATIVE (NEGATIVE); PROPOXYPHENE STAT NEGATIVE (NEGATIVE); TRICYCLIC ANTIDEPRESSANTS SCRE NEGATIVE (NEGATIVE)
[2019-08-22 19:21] VITALS: BP 137/67
[2019-08-23 21:29] LABS: AMPHETAMINES URINE QUAL DS Negative; BARBITURATES URINE QUAL DS Negative; BENZODIAZEPINE URINE QUAL DS Negative
== END 2019-08-22 19:22 | disposition home or self-care (01) ==
LOC: EDUNIT# 16:31 → ER 16:33
DX: R53.83 Other fatigue (principal); R68.89 Other general symptoms and signs; I10 Essential (primary) hypertension; E78.5 Hyperlipidemia, unspecified; G43.909 Migraine, unspecified, not intractable, without status migrainosus; F41.9 Anxiety disorder, unspecified; F32.9 Major depressive disorder, single episode, unspecified; G47.30 Sleep apnea, unspecified; Z99.89 Dependence on other enabling machines and devices; Z79.01 Long term (current) use of anticoagulants; Z79.82 Long term (current) use of aspirin; Z79.51 Long term (current) use of inhaled steroids
CPT/HCPCS: 36415; 71045; 80053; 80306; 80307; 81000; 83735; 83874; 83880; 84484; 85025; 85379; 85610; 85730; 93005; 93041; 96360

== ENCOUNTER 2019-11-28 13:37 | Outpatient (RCR) | payer OTHER ==
[~2019-11-28 13:37] MED LIST changes: +DILT120C88 PO; -DILT120C94 PO; -TAMS0.4C98 PO; +TMSL.4C PO
== END 2019-11-28 14:59 | disposition home or self-care (01) ==
PROVIDERS: ATTEND Nurse Practitioner
DX: G89.29 Other chronic pain (principal); M25.512 Pain in left shoulder; F32.9 Major depressive disorder, single episode, unspecified; Z98.890 Other specified postprocedural states

== ENCOUNTER 2021-08-19 18:53 | Inpatient (IN) | payer OTHER ==
[~2021-08-19] VITALS: Ht 180.3 cm; Wt 93.7 kg
[~2021-08-19 18:53] MED LIST changes: -FLUT16SP22 NS; +FLUT16SP22 NSEACH
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
[2021-08-19 19:10] LABS: BASOPHILS # (AUTO) 0.1 10^3/uL (0.0-0.1); BASOPHILS % (AUTO) 1 % (0-10); EOSINOPHILS # (AUTO) 0.2 10^3/uL (0.0-0.3); EOSINOPHILS % (AUTO) 2 % (0-10); HEMATOCRIT 43 % (40-54); HEMOGLOBIN 14.7 g/dL (13.3-17.7); LYMPHOCYTES # (AUTO) 1.9 10^3/uL (1.0-4.0); LYMPHOCYTES % (AUTO) 22 % (12-44); MEAN CORPUSCULAR HEMOGLOBIN 31 pg (25-34); MEAN CORPUSCULAR HGB CONC 34 g/dL (32-36); MEAN CORPUSCULAR VOLUME 89 fL (80-99); MEAN PLATELET VOLUME 9.6 fL (9.0-12.2); MONOCYTES # (AUTO) 0.9 10^3/uL (0.0-1.0); MONOCYTES % (AUTO) 10 % (0-12); NEUTROPHILS # (AUTO) 5.8 10^3/uL (1.8-7.8); NEUTROPHILS % (AUTO) 66 % (42-75); PLATELET COUNT 199 10^3/uL (130-400); WHITE BLOOD COUNT 8.8 10^3/uL (4.3-11.0)
[2021-08-19] MEDS ORDERED: dilTIAZem DRIP PRE-MIX 125 ML IV SCH (19:15)
[2021-08-19] MEDS ORDERED: ENOXAPARIN 60 MG/0.6 ML (LOVENOX) SYR SC ONE (19:15)
[2021-08-19] MEDS ORDERED: ASPIRIN 81 MG CHEW (CHILDREN'S ASA) PO ONE (19:15)
[2021-08-19 19:19] LABS: CHLORIDE 106 MMOL/L (98-107); POTASSIUM 3.6 MMOL/L (3.6-5.0); SODIUM 142 MMOL/L (135-145)
[2021-08-19 19:20] LABS: AMYLASE 55 U/L (25-125); CALCIUM 8.6 MG/DL (8.5-10.1)
[2021-08-19 19:21] LABS: GLUCOSE 102 MG/DL (70-105); TOTAL PROTEIN 6.2 GM/DL (6.4-8.2)
[2021-08-19 19:22] LABS: CARBON DIOXIDE 25 MMOL/L (21-32); INR 1.2 (0.8-1.4); PROTHROMBIN TIME PATIENT 15.5 SEC (12.2-14.7)
[2021-08-19] MEDS ORDERED: dilTIAZem DRIP PRE-MIX 125 ML IV ONE (19:22)
--- NOTE | 2021-08-19 19:22 | Diagnostic Imaging Report ---
INDICATION: Chest pain. TIME OF EXAM: 7:08 PM Comparison is made with prior chest from 08/22/2019. The heart size is normal. The pulmonary vascularity is unremarkable. The lungs are clear. No infiltrate, effusion or pneumothorax is detected. IMPRESSION: No acute cardiopulmonary process is detected. Dictated by: Dictated on workstation # [id number]
[2021-08-19 19:23] LABS: BILIRUBIN,TOTAL 0.3 MG/DL (0.1-1.0)
[2021-08-19 19:25] LABS: ALKALINE PHOSPHATASE 48 U/L (40-136)
[2021-08-19 19:28] LABS: ALANINE AMINOTRANSFERASE 10 U/L (0-55); MAGNESIUM 2.3 MG/DL (1.6-2.4)
[2021-08-19 19:29] LABS: CREATINE KINASE 92 U/L (30-200); LIPASE 44 U/L (8-78)
[2021-08-19] MEDS ORDERED: ENOXAPARIN 100 MG/1 ML (LOVENOX) SYR SC ONE (19:30)
[2021-08-19 19:34] LABS: CREATINE KINASE MB 1.4 NG/ML (<6.6)
[2021-08-19 20:06] LABS: TSH (THYROID ANALYZER) 1.57 UIU/ML (0.35-4.94)
[2021-08-19 20:19] LABS: BUN/CREATININE RATIO 14; CREATININE SERUM 1.19 MG/DL (0.60-1.30); GFR ESTIMATED 61
[2021-08-19] MEDS ORDERED: CATHETER FLUSH 10 ML SYR IV PRN (21:45)
[2021-08-19] MEDS ORDERED: ONDANSETRON 4 MG/2 ML (SDV) Z0FRAN IVP PRN (21:45)
[2021-08-19] MEDS ORDERED: NITROGLYCERIN 0.4 MG SL TABS BTL 25'S SL PRN (21:45)
[2021-08-19] MEDS ORDERED: morphine INJ 4 MG/ML 1 ML (VIAL/SYRINGE) IV PRN (21:45)
[2021-08-19] MEDS: dilTIAZem DRIP PRE-MIX 125 ML IV SCH (23:07)
[2021-08-19] MEDS: CATHETER FLUSH 10 ML SYR IV SCH (23:07)
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
[2021-08-20 05:15] LABS: BASOPHILS # (AUTO) 0.1 10^3/uL (0.0-0.1); BASOPHILS % (AUTO) 1 % (0-10); EOSINOPHILS # (AUTO) 0.2 10^3/uL (0.0-0.3); EOSINOPHILS % (AUTO) 3 % (0-10); HEMATOCRIT 44 % (40-54); HEMOGLOBIN 15.1 g/dL (13.3-17.7); LYMPHOCYTES # (AUTO) 3.1 10^3/uL (1.0-4.0); LYMPHOCYTES % (AUTO) 41 % (12-44); MEAN CORPUSCULAR HEMOGLOBIN 31 pg (25-34); MEAN CORPUSCULAR HGB CONC 34 g/dL (32-36); MEAN CORPUSCULAR VOLUME 90 fL (80-99); MEAN PLATELET VOLUME 10.1 fL (9.0-12.2); MONOCYTES # (AUTO) 0.7 10^3/uL (0.0-1.0); MONOCYTES % (AUTO) 9 % (0-12); NEUTROPHILS # (AUTO) 3.5 10^3/uL (1.8-7.8); NEUTROPHILS % (AUTO) 47 % (42-75); PLATELET COUNT 202 10^3/uL (130-400); WHITE BLOOD COUNT 7.5 10^3/uL (4.3-11.0)
[2021-08-20] MEDS: CATHETER FLUSH 10 ML SYR IV SCH ×3 (05:32→21:47)
[2021-08-20 05:35] LABS: ALBUMIN 3.8 GM/DL (3.2-4.5); POTASSIUM 3.5 MMOL/L (3.6-5.0)
[2021-08-20 05:36] LABS: CALCIUM 8.7 MG/DL (8.5-10.1)
[2021-08-20 05:39] LABS: BILIRUBIN,TOTAL 0.4 MG/DL (0.1-1.0)
[2021-08-20 05:41] LABS: CREATININE SERUM 1.1 MG/DL (0.60-1.30); PHOSPHORUS 3.6 MG/DL (2.3-4.7)
[2021-08-20 05:44] LABS: MAGNESIUM 2.2 MG/DL (1.6-2.4)
[2021-08-20] MEDS ORDERED: ACETAMINOPHEN 325 MG TABLET PO PRN (08:00)
[2021-08-20] MEDS ORDERED: ACETAMINOPHEN 325 MG TABLET ONE (08:02)
[2021-08-20] MEDS: ASPIRIN E.C. 81 MG (ECOTRIN) TAB PO SCH (08:17)
[2021-08-20] MEDS: dilTIAZem DRIP PRE-MIX 125 ML IV SCH (08:18)
[2021-08-20] MEDS ORDERED: KCL 20 MEQ TAB (K-DUR) PO ONE (09:00)
[2021-08-20] MEDS ORDERED: ENOXAPARIN 100 MG/1 ML (LOVENOX) SYR SC SCH (09:00)
--- NOTE | 2021-08-20 09:57 | Tele-ICU Progress Note ---
Subjective Date Seen by a Provider: Aug 20, 2021 Time Seen by a Provider: 09:57 Sepsis Event Evaluation Height, Weight, BMI Height: 5'11.00" Weight: 200lbs. 0.1oz. 90.361556ks; 27.10 BMI Method:Stated Exam Exam Patient acknowledged, consented, and participated in this virtual visit which was conducted using real time audio/video Vital Signs Date Time Temp Pulse Resp B/P (MAP) Pulse Ox O2 Delivery O2 Flow Rate FiO2 08/20/21 09:15 114/73 95 08/20/21 09:00 58 111/61 98 Room Air 08/20/21 08:45 104/70 96 08/20/21 08:30 56 94/58 95 08/20/21 08:15 77 125/59 94 08/20/21 08:00 58 102/59 97 Room Air 08/20/21 07:46 35.9 08/20/21 07:45 53 97/63 96 08/20/21 07:30 45 108/69 96 08/20/21 07:15 65 122/69 97 08/20/21 07:00 61 113/74 Room Air 08/20/21 07:00 56 08/20/21 06:45 54 128/83 95 08/20/21 06:30 63 122/83 95 08/20/21 06:15 56 121/77 98 08/20/21 06:00 66 119/75 97 Room Air 08/20/21 05:00 62 125/80 97 Room Air 08/20/21 04:00 97 Room Air 08/20/21 04:00 56 115/80 97 Room Air 08/20/21 03:26 36.5 08/20/21 03:00 73 123/75 96 Room Air 08/20/21 02:00 71 120/83 97 Room Air 08/20/21 01:00 70 08/20/21 01:00 70 122/70 98 Room Air 08/20/21 00:00 97 Room Air 08/20/21 00:00 78 15 124/69 98 Room Air 08/19/21 23:00 79 18 123/75 97 Room Air 08/19/21 22:45 88 9 123/74 97 Room Air 08/19/21 22:30 74 19 111/72 98 Room Air 08/19/21 22:15 87 24 131/82 97 Room Air 08/19/21 22:00 89 19 130/85 98 Room Air 08/19/21 21:45 100 114/91 97 Room Air 08/19/21 21:35 115 08/19/21 21:29 36.3 98 18 121/87 96 Room Air 08/19/21 21:19 97 Room Air 08/19/21 21:08 85 20 122/85 96 Room Air 08/19/21 18:53 37.0 135 20 140/103 (115) 98 Room Air I & O 08/20/21 07:00 Intake Total 270 ml Output Total 500 ml Balance -230 ml Height & Weight Height: 5'11.00" Weight: 200lbs. 0.1oz. 90.821275zy; 27.10 BMI Method:Stated General Appearance: No Apparent Distress, WD/WN Neck: Normal Inspection Respiratory: Chest Non Tender, Normal Breath Sounds, No Accessory Muscle Use, No Respiratory Distress Cardiovascular: No Edema, No JVD, No Murmur, Normal Peripheral Pulses, Irregularly Irregular, Tachycardia (110'S) Capillary Refill: Less Than 3 Seconds Gastrointestinal: normal bowel sounds, non tender Extremity: Normal Capillary Refill, Normal Inspection, Normal Range of Motion, Non Tender, No Calf Tenderness, No Pedal Edema Neurologic/Psychiatric: Alert, Oriented x3, No Motor/Sensory Deficits, Normal 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 Discussed with RN to reach out if any questions or concerns A total of 20 minutes of critical care time was devoted to this patient today, required to treat and/or prevent further deterioration of critical care conditio n ( as above ) . ARNEL SUAZO MD Aug 20, 2021 09:57
[2021-08-20] MEDS ORDERED: MAGN400C PO (10:56)
[2021-08-20] MEDS ORDERED: RIBO100T3 PO (10:56)
[2021-08-20] MEDS ORDERED: VALP250C3 PO (10:56)
[2021-08-20] MEDS ORDERED: EZET10TA49 PO (10:56)
[2021-08-20] MEDS ORDERED: SILD20TA14 PO (10:56)
[2021-08-20] MEDS ORDERED: ACET-93 PO (10:56)
[2021-08-20] MEDS ORDERED: ASCO500C18 PO (10:56)
[2021-08-20] MEDS ORDERED: DEXT1DRO7 OP (10:56)
[2021-08-20] MEDS ORDERED: HYDR12.56 PO (10:56)
[2021-08-20] MEDS ORDERED: PARO10TA3 PO (10:56)
[2021-08-20] MEDS ORDERED: HYDR-700 PO ×2 (10:56→11:04)
[2021-08-20] MEDS ORDERED: DICL100G13 TP (10:56)
[2021-08-20] MEDS ORDERED: MIDAZOLAM 5 MG/5 ML (VERSED) VIAL ONE (11:00)
[2021-08-20] MEDS ORDERED: NS IV 1000 ML 1,000 ML ONE (11:00)
[2021-08-20] MEDS ORDERED: fentaNYL INJ 100 MCG/2 ML AMP ONE (11:00)
[2021-08-20] MEDS ORDERED: VERAPAMIL 5 MG/2 ML (CALAN) VIAL IV ONE (11:02)
[2021-08-20] MEDS ORDERED: HEParin 1000 UNIT/ML (10ML VIAL) FOR BOLUS ONE (11:02)
[2021-08-20] MEDS ORDERED: LIDOCAINE 1% INJ 20 ML 20 ML VIAL ONE (11:02)
[2021-08-20] MEDS ORDERED: HEParin (CATH LAB) 2,000 ML IV ONE (11:03)
[2021-08-20] MEDS ORDERED: NITRO DRIP 25000 MCG/D5W 250 ML IV ONE (11:04)
[2021-08-20] MEDS ORDERED: BUSP7.5T5 PO (11:04)
--- NOTE | 2021-08-20 11:06 | Consultation-Cardiology ---
HPI-Cardiology Cardiology Consultation Date of Consultation 08/20/21 Date of Admission Time Seen by Provider: 11:03 Indication: Atrial fibrillation HPI 66 years old gentleman poor historian, expressed that he was not feeling very well, felt his heart racing, called the ambulance and brought to the emergency room noted to be in atrial fibrillation with rapid ventricular response. Responded to Cardizem. Unable to provide any history, does not recall having any previous cardiac issues although he mentioned that he had atrial fibrillation about 2 years ago. Did not take any oral anticoagulation, was following with the [facility], reported that he has history of hypertension. Home Medications & Allergies Allergies: Coded Allergies: No Known Drug Allergies (Unverified , 09/18/13) Home Medication List Reviewed: Yes PYK-Bhnung-Aadeby Hx Patient Social History Marital Status: single Smoking Status: Never a Smoker 2nd Hand Smoke Exposure: No Recent Hopitalizations: No Have you traveled recently?: No Alcohol Use?: No Immunizations Up To Date Tetanus Booster (TDap): Less than 5yrs Date of Pneumonia Vaccine: May 18, 2017 Date of Influenza Vaccine: Jul 04, 2021 Past Medical History Discussed below Family Medical History Significant Family History: No Pertinent Family Hx Family Medical Hx Noncontributory Review of Systems-General Review of Systems Constitutional: see HPI, diaphoresis, dizziness, weakness EENTM: see HPI Respiratory: see HPI; No cough; dyspnea on exertion; No hemoptysis, No orthopnea, No phlegm, No short of breath, No stridor, No wheezing, No other Cardiovascular: see HPI, edema; No Hx of Intervention, No palpitations, No syncope, No vascular heart diseas, No other Gastrointestinal: see HPI Genitourinary: see HPI Musculoskeletal: no symptoms reported Skin: no symptoms reported, see HPI Psychiatric/Neurological: No Symptoms Reported, See HPI, Anxiety, Depressed Reviewed Test Results Reviewed Test Results Lab Laboratory Tests Test 08/19/21 19:04 08/20/21 04:20 Range/Units White Blood Count 8.8 7.5 4.3-11.0 10^3/uL Red Blood Count 4.81 4.93 4.30-5.52 10^6/uL Hemoglobin 14.7 15.1 13.3-17.7 g/dL Hematocrit 43 44 40-54 % Mean Corpuscular Volume 89 90 80-99 fL Mean Corpuscular Hemoglobin 31 31 25-34 pg Mean Corpuscular Hemoglobin Concent 34 34 32-36 g/dL Red Cell Distribution Width 12.9 13.1 10.0-14.5 % Platelet Count 199 202 130-400 10^3/uL Mean Platelet Volume 9.6 10.1 9.0-12.2 fL Immature Granulocyte % (Auto) 0 0 % Neutrophils (%) (Auto) 66 47 42-75 % Lymphocytes (%) (Auto) 22 41 12-44 % Monocytes (%) (Auto) 10 9 0-12 % Eosinophils (%) (Auto) 2 3 0-10 % Basophils (%) (Auto) 1 1 0-10 % Neutrophils # (Auto) 5.8 3.5 1.8-7.8 10^3/uL Lymphocytes # (Auto) 1.9 3.1 1.0-4.0 10^3/uL Monocytes # (Auto) 0.9 0.7 0.0-1.0 10^3/uL Eosinophils # (Auto) 0.2 0.2 0.0-0.3 10^3/uL Basophils # (Auto) 0.1 0.1 0.0-0.1 10^3/uL Immature Granulocyte # (Auto) 0.0 0.0 0.0-0.1 10^3/uL Prothrombin Time 15.5 H 12.2-14.7 SEC INR Comment 1.2 0.8-1.4 Activated Partial Thromboplast Time 32 24-35 SEC Sodium Level 142 141 135-145 MMOL/L Potassium Level 3.6 3.5 L 3.6-5.0 MMOL/L Chloride Level 106 106 98-107 MMOL/L Carbon Dioxide Level 25 22 21-32 MMOL/L Anion Gap 11 13 5-14 MMOL/L Blood Urea Nitrogen 17 19 H 7-18 MG/DL Creatinine 1.19 1.10 0.60-1.30 MG/DL Estimat Glomerular Filtration Rate 61 67 BUN/Creatinine Ratio 14 17 Glucose Level 102 110 H 70-105 MG/DL Calcium Level 8.6 8.7 8.5-10.1 MG/DL Corrected Calcium 8.6 8.9 8.5-10.1 MG/DL Magnesium Level 2.3 2.2 1.6-2.4 MG/DL Total Bilirubin 0.3 0.4 0.1-1.0 MG/DL Aspartate Amino Transf (AST/SGOT) 15 16 5-34 U/L Alanine Aminotransferase (ALT/SGPT) 10 10 0-55 U/L Alkaline Phosphatase 48 46 40-136 U/L Total Creatine Kinase 92 30-200 U/L Creatine Kinase MB 1.4 <6.6 NG/ML Troponin I < 0.028 0.296 *H <0.028 NG/ML B-Type Natriuretic Peptide 43.2 <100.0 PG/ML Total Protein 6.2 L 6.0 L 6.4-8.2 GM/DL Albumin 4.0 3.8 3.2-4.5 GM/DL Amylase Level 55 25-125 U/L Lipase 44 8-78 U/L TSH [place] Testing 1.57 0.35-4.94 UIU/ML Serum Alcohol < 10 <10 MG/DL Phosphorus Level 3.6 2.3-4.7 MG/DL Triglycerides Level 183 H <150 MG/DL Cholesterol Level 203 H < 200 MG/DL LDL Cholesterol Direct 166 H 1-129 MG/DL VLDL Cholesterol 37 5-40 MG/DL HDL Cholesterol 34 L 40-60 MG/DL Physical Exam Physical Exam Vital Signs Vital Signs - First Documented 08/19/21 18:53 Temp 37.0 Pulse 135 Resp 20 B/P (MAP) 140/103 (115) Pulse Ox 98 O2 Delivery Room Air Capillary Refill : Less Than 3 Seconds Height, Weight, BMI Height: 5'11.00" Weight: 200lbs. 0.1oz. 90.332988yd; 27.10 BMI Method:Stated General Appearance: No Apparent Distress, WD/WN Eyes: Bilateral Eye Normal Inspection, Bilateral Eye PERRL, Bilateral Eye EOMI HEENT: PERRL/EOMI, TMs Normal, Normal ENT Inspection, Pharynx Normal, Moist Mucous Membranes Neck: Normal Inspection Respiratory: Chest Non Tender, Normal Breath Sounds, No Accessory Muscle Use, No Respiratory Distress Cardiovascular: No Edema, No JVD, No Murmur, Normal Peripheral Pulses, Irregularly Irregular Gastrointestinal: Normal Bowel Sounds, No Organomegaly, No Pulsatile Mass, Non Tender, Soft Back: Normal Inspection, No CVA Tenderness, No Vertebral Tenderness Extremity: Normal Capillary Refill, Normal Inspection, Normal Range of Motion, Non Tender, No Calf Tenderness, No Pedal Edema Neurologic/Psychiatric: Alert, Oriented x3, No Motor/Sensory Deficits, Normal Mood/Affect, hemp fiber taker off II-XII Norm as Tested Skin: Normal Color, Warm/Dry; No Rash Lymphatic: No Adenopathy A/P-Cardiology Admission Diagnosis Non-ST elevation myocardial infarction Atrial fibrillation Hypertension Hyperlipidemia Assessment/Plan Atrial fibrillation with rapid ventricular response, started on Cardizem drip, heart rate is better, trying to switch him to oral Cardizem, evaluate 2D ec hocardiogram Elevated troponin level, non-ST elevation myocardial infarction, underlying coronary artery disease cannot be excluded, has been having nonspecific symptoms with fatigue and loss of energy, no reported chest pain, EKG showing poor R wave progression with nonspecific T wave abnormality, I am planning to proceed with cardiac catheterization possible PTCA Hypertension, restart home medication monitor blood pressure Hyperlipidemia, starting on statin History of erectile dysfunction, maintained on Viagra Bipolar disorder. Managed by the [place] KAREN COREY MD Aug 20, 2021 11:06
--- NOTE | 2021-08-20 11:07 | Conscious Sedation/ASA ---
Conscious Sedation Pre-Proced Time 11:07 ASA Score 3 For ASA 3 and 4: Consider anesthesia and medical clearance. Also, for patients with a history of failed moderate sedation consider anesthesia. Airway Lungs Heart ASA score ASA 1: a normal healthy patient ASA 2: a patient with a mild systemic disease (mid diabetes, controlled hypertension, obesity x ASA 3: a patient with a severe systemic disease that limits activity (angina, COPD, prior Myocardial infarction) ASA 4: a patient with an incapacitating disease that is a constant threat to life (CHF, renal failure) ASA 5: a moribund patient not expected to survive 24 hrs. (ruptured aneurysm) ASA 6: a declared brain- patient whose organs are being harvested. For emergent operations, add the letter E after the classification Mallampati Classification Grade 3 Sedation Plan Analgesia, Amnesia, Plan communicated to team members, Discussed options with patient/fam, Discussed risks with patient/fam The patient is an appropriate candidate to undergo the planned procedure, sedation, and anesthesia. The patient immediately re-assessed prior to indication. KAREN COREY MD Aug 20, 2021 11:07
--- NOTE | 2021-08-20 11:46 | Cardiac Cath Report ---
Cardiac Cath Report Physician (s)/Energy Operations Vice President (s) Physician KAREN COREY MD Pre-Procedure Diagnosis Pre-Procedure Diagnosis: Coronary artery disease Post-Procedure Note Procedure Start Date: Aug 20, 2021 Name of Procedure: Coronary angiogram Aortic arch angiogram Findings/Procedure Note PROCEDURE NOTE: 66 years old gentleman with atrial fibrillation, had elevation of troponin level, brought for cardiac catheterization possible PTCA. After explaining the procedure to the patient, all pros and cons were explained, all questions were answered. The patient signed the consent and then he was placed on the cardiac catheterization laboratory. Groin was prepped SL fashion local anesthesia was used. Sheath placed in the right radial artery, [place] catheter was advanced, had significant tortuosity in the aortic arch and the brachiocephalic artery, had difficulty advancing the catheter. I was unable to cross the aortic valve. Intubated the right coronary and angiogram was done, was unable to intubate the left coronary system, exchanged the cath and used [place] left, with difficulty I was able to access the left coronary system and angiogram was done. Due to the significant difficulty and the tortuosity I dec ided to evaluate aortic arch angiogram. At the end of the procedure the sheath was removed. Vascular band was used FINDINGS: Hemodynamics LV was not evaluated Aorta 105/80 mean of 49 ANATOMY: Left Main is free of obstructive disease Left Anterior Descending is mildly tortuous with mild disease nonobstructive disease Left Circumflex has mild disease nonobstructive disease Right Coronary Artery has mild disease nonobstructive disease Aortic arch angiogram was done showing slightly prominent aortic arch, no dissection or aneurysm, significantly tortuous brachiocephalic artery with no obstructive disease, left carotid and left subclavian artery were not well visualized but overall did not have any signs of heavy calcification or heavy disease CONCLUSION: 1. Tortuous coronary system with mild coronary artery disease nonobstructive disease 2. Slightly prominent aortic arch, no dissection or aneurysm, tortuous brachiocephalic artery DISCUSSION AND RECOMMENDATION: Maximizing medical therapy, elevated troponin level is probably due to type II myocardial infarction secondary to atrial fibrillation rapid ventricular resp onse Anesthesia Type: Conscious Sedation Estimated blood loss (mL): 15 ml Contrast Amount: 54 ml Total Radiation Dose: 496 mGy Post-Procedure Diagnosis Post-operative diagnosis: Coronary artery disease Atrial fibrillation Hypertension Hyperlipidemia KAREN COREY MD Aug 20, 2021 11:46
[2021-08-20] MEDS: NS IV 1000 ML 1,000 ML IV SCH ×2 (11:59→21:47)
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
[2021-08-20] MEDS ORDERED: APIX5TAB PO (15:16)
[2021-08-20] MEDS ORDERED: HYDR25TA4 PO (15:16)
[2021-08-20] MEDS ORDERED: CHOL-34 PO (15:16)
[2021-08-20] MEDS ORDERED: BUSP15TA60 PO (15:16)
[2021-08-20] MEDS ORDERED: CARB-254 OU (15:16)
[2021-08-20] MEDS ORDERED: PARO20TA5 PO (15:16)
[2021-08-20] MEDS ORDERED: PARO30TA3 PO (15:16)
[2021-08-20] MEDS ORDERED: ASCO-262 PO (15:18)
[2021-08-20] MEDS: VALPROIC ACID SYRUP 250 MG/5 ML UDC PO SCH (19:48)
[2021-08-20] MEDS: busPIRone 5 MG (BUSPAR) TAB PO SCH (19:48)
[2021-08-20] MEDS: APIXABAN 5 MG (ELIQUIS) TABLET PO SCH (19:48)
[2021-08-20] MEDS ORDERED: VALPROIC ACID 500 MG PO SCH (21:00)
[2021-08-20] MEDS ORDERED: HYDROXYZINE PO SCH (21:00)
[2021-08-20] MEDS ORDERED: hydrOXYzine (VISTARIL/ATARAX) 25 MG capsule/tablet PO PRN (21:00)
[2021-08-20] MEDS ORDERED: APIXABAN 5 MG (ELIQUIS) TABLET PO SCH (21:00)
[2021-08-20] MEDS ORDERED: NON-FORMULARY MEDICATION 1 EA EA (Buspirone HCl 7.5 MG) PO SCH (21:00)
[2021-08-20] MEDS ORDERED: hydrOXYzine (VISTARIL/ATARAX) 25 MG capsule/tablet PO SCH (21:00)
[2021-08-21 04:42] LABS: BASOPHILS # (AUTO) 0.1 10^3/uL (0.0-0.1); BASOPHILS % (AUTO) 1 % (0-10); EOSINOPHILS # (AUTO) 0.2 10^3/uL (0.0-0.3); EOSINOPHILS % (AUTO) 3 % (0-10); HEMATOCRIT 41 % (40-54); HEMOGLOBIN 13.9 g/dL (13.3-17.7); LYMPHOCYTES # (AUTO) 2.1 10^3/uL (1.0-4.0); LYMPHOCYTES % (AUTO) 32 % (12-44); MEAN CORPUSCULAR HEMOGLOBIN 31 pg (25-34); MEAN CORPUSCULAR HGB CONC 34 g/dL (32-36); MEAN CORPUSCULAR VOLUME 91 fL (80-99); MEAN PLATELET VOLUME 9.9 fL (9.0-12.2); MONOCYTES # (AUTO) 0.7 10^3/uL (0.0-1.0); MONOCYTES % (AUTO) 11 % (0-12); NEUTROPHILS # (AUTO) 3.5 10^3/uL (1.8-7.8); NEUTROPHILS % (AUTO) 54 % (42-75); PLATELET COUNT 182 10^3/uL (130-400); WHITE BLOOD COUNT 6.6 10^3/uL (4.3-11.0)
[2021-08-21 05:13] LABS: ALBUMIN 3.4 GM/DL (3.2-4.5); POTASSIUM 3.6 MMOL/L (3.6-5.0)
[2021-08-21 05:14] LABS: CALCIUM 8.2 MG/DL (8.5-10.1)
[2021-08-21 05:15] LABS: TOTAL PROTEIN 5.5 GM/DL (6.4-8.2)
[2021-08-21 05:17] LABS: BILIRUBIN,TOTAL 0.3 MG/DL (0.1-1.0)
[2021-08-21 05:18] LABS: PHOSPHORUS 3.7 MG/DL (2.3-4.7)
[2021-08-21 05:19] LABS: CREATININE SERUM 1.27 MG/DL (0.60-1.30)
[2021-08-21] MEDS: CATHETER FLUSH 10 ML SYR IV SCH (05:40)
[2021-08-21] MEDS ORDERED: KCL 20 MEQ TAB (K-DUR) PO NR ×2 (05:45→09:00)
[2021-08-21] MEDS ORDERED: POTASSIUM CL 10MEQ/50ML IVPB 50 ML IV SCH (06:00)
[2021-08-21] MEDS ORDERED: KCL 20 MEQ TAB (K-DUR) PO SCH (06:00)
[2021-08-21] MEDS ORDERED: MAGNESIUM 1 GM/100 ML IVPB 100 ML IV SCH (06:00)
[2021-08-21] MEDS: NS IV 1000 ML 1,000 ML IV SCH (07:23)
[2021-08-21] MEDS: ASPIRIN E.C. 81 MG (ECOTRIN) TAB PO SCH (08:32)
[2021-08-21] MEDS: busPIRone 5 MG (BUSPAR) TAB PO SCH (08:33)
[2021-08-21] MEDS: VALPROIC ACID SYRUP 250 MG/5 ML UDC PO SCH (08:34)
[2021-08-21] MEDS: APIXABAN 5 MG (ELIQUIS) TABLET PO SCH (08:35)
--- NOTE | 2021-08-21 08:52 | Cardiology Progress Note ---
Subjective Date Seen by Provider: Aug 21, 2021 Time Seen by Provider: 08:50 Subjective/Events-last exam Patient has converted to sinus rhythm overnight, laying down comfortably in bed. No new complaint Review of Systems General: No Chills, No Night Sweats, No Fatigue, No Malaise, No Appetite, No Other HEENT: No Head Aches, No Visual Changes, No Eye Pain, No Ear Pain, No Dysphasia, No Sinus Congestion, No Post Nasal Drip, No Sore Throat, No Other Pulmonary: No Dyspnea, No Cough, No Pleuritic Chest Pain, No Other Cardiovascular: No: Chest Pain, Palpitations, Orthopnea, Paroxysmal Noc. Dyspnea, Edema, Lt Headedness, Other Objective-Cardiology Exam Last Set of Vital Signs Vital Signs 08/20/21 08/21/21 08/21/21 00:00 06:00 08:23 Temp 35.5 Pulse 47 Resp 15 B/P (MAP) 116/62 Pulse Ox 97 O2 Delivery Room Air I&O Intake and Output 08/20/21 23:59 Intake Total 650 ml Output Total 500 ml Balance 150 ml Intake Oral 650 ml Output Urine Total 500 ml # Voids 4 General: Alert, Oriented X3, Cooperative HEENT: Atraumatic, PERRLA Neck: Supple, No JVD, No Thyromegaly Lungs: Clear to Auscultation, Normal Air Movement Heart: Regular Rate, Normal S1, Normal S2, No Murmurs Abdomen: Normal Bowel Sounds, Soft, No Tenderness, No Hepatosplenomegaly, No Masses Extremities: No Clubbing, No Cyanosis, No Edema, Normal Pulses, No Tenderness/Swelling Skin: No Rashes, No Breakdown, No Significant Lesion Neuro: Normal Gait, Normal Speech, Strength at 5/5 X4 Ext, Normal Tone, Sensation Intact Psych/Mental Status: Mental Status NL, Mood NL Results Lab Laboratory Tests 08/21/21 04:12 A/P-Cardiology Admission Diagnosis Non-ST elevation myocardial infarction Atrial fibrillation Hypertension Hyperlipidemia Assessment/Plan Paroxysmal atrial fibrillation converted to sinus rhythm on Cardizem, I will decrease Cardizem to Cardizem CD 120 mg daily. Educated on taking medication regularly and monitor heart rate and blood pressure. I offered patient appointment for follow-up and [facility], highly recommended evaluation by legal aide. [id number] score 2, yearly risk of stroke without oral anticoagulation is 2.2%, maintained on Eliquis. Coronary artery disease, cardiac catheterization was done due to elevated troponin level showing tortuous coronary artery with mild to moderate disease nonobstructive disease, probably type II myocardial infarction secondary to tachycardia. Hypertension, tolerating current medication well. Hyperlipidemia, starting on statin History of erectile dysfunction, maintained on Viagra Bipolar disorder. Managed by the [facility] for discharge and follow-up with [facility] as an outpatient, highly recommend cardiology evaluation KAREN COREY MD Aug 21, 2021 08:52
[2021-08-21] MEDS ORDERED: dilTIAZem120 MG (CARDIZEM CD) CAP PO SCH (09:00)
[2021-08-21] MEDS ORDERED: PARoxetine 20 MG (PAXIL) TAB PO SCH (09:00)
[2021-08-21] MEDS ORDERED: eZETimibe 10 MG (ZETIA) TABLET PO SCH (09:00)
[2021-08-21] MEDS ORDERED: PARoxetine 10 MG (PAXIL) TAB PO SCH (09:00)
[2021-08-21] MEDS ORDERED: ASPIRIN E.C. 81 MG (ECOTRIN) TAB PO SCH (09:00)
[2021-08-21] MEDS ORDERED: NON-FORMULARY MEDICATION 1 EA EA (Paroxetine HCl 40 MG) PO SCH (09:00)
[2021-08-21 10:11] VITALS: BP 105/90
--- NOTE | 2021-08-21 22:11 | Discharge Summary ---
Discharge Summary Hospital Course Problems/Dx: (1) NSTEMI (non-ST elevation myocardial infarction) Status: Acute (2) Chest pain Status: Acute (3) Atrial fibrillation with RVR Status: Acute Hospital Course Date of Admission: Aug 19, 2021 at 20:00 Admission Diagnosis : Family Physician/Provider: Date of Discharge: 08/21/21 Discharge Diagnosis: [ ] Hospital Course: [ ] Labs and Pending Lab Test: Laboratory Tests 08/21/21 04:12: White Blood Count 6.6, Red Blood Count 4.48, Hemoglobin 13.9, Hematocrit 41, Mean Corpuscular Volume 91, Mean Corpuscular Hemoglobin 31, Mean Corpuscular Hemoglobin Concent 34, Red Cell Distribution Width 13.2, Platelet Count 182, Mean Platelet Volume 9.9, Immature Granulocyte % (Auto) 0, Neutrophils (%) (Auto) 54, Lymphocytes (%) (Auto) 32, Monocytes (%) (Auto) 11, Eosinophils (%) (Auto) 3, Basophils (%) (Auto) 1, Neutrophils # (Auto) 3.5, Lymphocytes # (Auto) 2.1, Monocytes # (Auto) 0.7, Eosinophils # (Auto) 0.2, Basophils # (Auto) 0.1, Immature Granulocyte # (Auto) 0.0, Sodium Level 139, Potassium Level 3.6, Chloride Level 106, Carbon Dioxide Level 21, Anion Gap 12, Blood Urea Nitrogen 21H, Creatinine 1.27, Estimat Glomerular Filtration Rate 56, BUN/Creatinine Ratio 17, Glucose Level 142H, Calcium Level 8.2L, Corrected Calcium 8.7, Phosphorus Level 3.7, Magnesium Level 2.0, Total Bilirubin 0.3, Aspartate Amino Transf (AST/SGOT) 13, Alanine Aminotransferase (ALT/SGPT) 10, Alkaline Phosphatase 48, Total Protein 5.5L, Albumin 3.4 Microbiology 08/19/21 MRSA Screen - Final, Complete MRSA not isolated Home Meds Active Reported Vitamin C (Ascorbate Calcium) 500 Mg Tablet 500 Mg PO DAILY Eliquis (Apixaban) 5 Mg Tablet 5 Mg PO BID Buspirone HCl 15 Mg Tablet 7.5 Mg PO BID TAKES OF A 15MG TAB Hydrochlorothiazide 25 Mg Tablet 12.5 Mg PO DAILY TAKES OF A 25MG Artificial Tears (Carboxymethylcellulose Sodium) 15 Ml Drops 1 Drop OU BID Paroxetine HCl 20 Mg Tablet 20 Mg PO DAILY TAKES 20MG + 30MG TO EQUAL 50MG Vitamin D3 (Cholecalciferol (Vitamin D3)) 25 Mcg Tablet 25 Mcg PO DAILY Paroxetine HCl 30 Mg Tablet 30 Mg PO DAILY TAKES 20MG + 30MG TO EQUAL 50MG Hydroxyzine HCl 25 Mg Tablet 75 Mg PO HS Valproic Acid 250 Mg Capsule 500 Mg PO BID TAKES 2 (500MG) TABS Riboflavin 100 Mg Tablet 400 Mg PO DAILY TAKES 4 (100MG) TABS Magnesium (Magnesium Oxide) 400 Mg Capsule 400 Mg PO DAILY Hydroxyzine HCl 25 Mg Tablet 25 Mg PO TID PRN Ezetimibe 10 Mg Tablet 5 Mg PO DAILY TAKES OF A 10MG TAB Diclofenac Sodium 100 Gm Gel..gram. 2 Gm TP TID PRN Acetaminophen 500 Mg Tablet 1,000 Mg PO Q8H PRN Fluticasone Propionate 16 Gm Raymond.susp 2 Sprays NSEACH DAILY Assessment/Pt Instructions Take meds as prescribed. Follow up with your PCP. Return with worsening symptoms. Discharge Planning: <30 minutes discharge planning Discharge Instructions Discharge Diet: No Restrictions Activity as Tolerated: Yes Discharge Physical Examination Vital Signs Vital Signs Date Time Temp Pulse Resp B/P (MAP) Pulse Ox O2 Delivery O2 Flow Rate FiO2 08/21/21 10:11 36.2 57 15 105/90 96 Room Air Allergies: Coded Allergies: No Known Drug Allergies (Unverified , 09/18/13) Discharge Summary Date of Admission Aug 19, 2021 at 20:00 Date of Discharge Aug 21, 2021 at 10:20 Discharge Date: Aug 21, 2021 Discharge Time: 10:20 Admission Diagnosis NSTEMI Consults/Procedures Consulations Cardiology Procedures Left heart catheterization Discharge Diagnosis NSTEMI Chest pain AFib with RVR (1) NSTEMI (non-ST elevation myocardial infarction) Status: Acute (2) Chest pain Status: Acute (3) Atrial fibrillation with RVR Status: Acute CLAUDIA SCHROEDER MD Aug 21, 2021 22:11
== END 2021-08-21 10:20 | disposition home or self-care (01) | DRG 282 ==
LOC: EDUNIT# 18:53 → ER 18:56 → ICU 20:00
PROVIDERS: ADMIT Internal Medicine Cardiovascular Disease; ATTEND Internal Medicine
PROC: B2111ZZ Fluoroscopy of Multiple Coronary Arteries using Low Osmolar Contrast (ICD-10-PCS; principal; 2021-08-20)
PROC: B3101ZZ Fluoroscopy of Thoracic Aorta using Low Osmolar Contrast (ICD-10-PCS; 2021-08-20)
DX: I48.0 Paroxysmal atrial fibrillation (principal); I21.A1 Myocardial infarction type 2; I25.10 Atherosclerotic heart disease of native coronary artery without angina pectoris; I77.1 Stricture of artery; G47.30 Sleep apnea, unspecified; E78.00 Pure hypercholesterolemia, unspecified; E78.5 Hyperlipidemia, unspecified; I10 Essential (primary) hypertension; N40.1 Benign prostatic hyperplasia with lower urinary tract symptoms; R33.8 Other retention of urine; F41.9 Anxiety disorder, unspecified; F31.9 Bipolar disorder, unspecified; N52.9 Male erectile dysfunction, unspecified; Z79.01 Long term (current) use of anticoagulants; Z79.82 Long term (current) use of aspirin
CPT/HCPCS: 36221; 36415; 71045; 80053; 80061; 80320; 82150; 82550; 82553; 83690; 83735; 83880; 84100; 84443; 84484; 85025; 85610; 85730; 87081; 93005; 93041; 93306; 93454; 96365; 96366; 96372

== ENCOUNTER 2021-08-31 18:30 | Inpatient (IN) | payer MEDICARE, OTHER ==
[~2021-08-31] VITALS: Ht 180.3 cm; Wt 90.7 kg
[~2021-08-31 18:30] MED LIST changes: +ACET-93 PO; +ASCO-262 PO; +ASCO500C18 PO; +BUSP15TA60 PO; +BUSP7.5T5 PO; +CARB-254 OU; +CHOL-34 PO; +DEXT1DRO7 OP; +DICL100G13 TP; +EZET10TA49 PO; +HYDR-700 PO; +HYDR12.56 PO; +MAGN400C PO; +PARO10TA3 PO; +PARO20TA5 PO; +PARO30TA3 PO; +RIBO100T3 PO; +SILD20TA14 PO; +VALP250C3 PO
[2021-08-31] MEDS ORDERED: ASPIRIN 81 MG CHEW (CHILDREN'S ASA) PO ONE (18:45)
[2021-08-31] MEDS ORDERED: NITROGLYCERIN 0.4 MG SL TABS BTL 25'S SL PRN ×2 (18:45→21:45)
[2021-08-31 18:54] LABS: BASOPHILS # (AUTO) 0.1 10^3/uL (0.0-0.1); BASOPHILS % (AUTO) 1 % (0-10); EOSINOPHILS # (AUTO) 0.1 10^3/uL (0.0-0.3); EOSINOPHILS % (AUTO) 1 % (0-10); HEMATOCRIT 46 % (40-54); HEMOGLOBIN 16.4 g/dL (13.3-17.7); LYMPHOCYTES # (AUTO) 1.5 10^3/uL (1.0-4.0); LYMPHOCYTES % (AUTO) 15 % (12-44); MEAN CORPUSCULAR HEMOGLOBIN 31 pg (25-34); MEAN CORPUSCULAR HGB CONC 35 g/dL (32-36); MEAN CORPUSCULAR VOLUME 87 fL (80-99); MEAN PLATELET VOLUME 9.5 fL (9.0-12.2); MONOCYTES % (AUTO) 10 % (0-12); NEUTROPHILS # (AUTO) 7.2 10^3/uL (1.8-7.8); NEUTROPHILS % (AUTO) 73 % (42-75); PLATELET COUNT 262 10^3/uL (130-400); WHITE BLOOD COUNT 9.9 10^3/uL (4.3-11.0)
[2021-08-31] MEDS ORDERED: ENOXAPARIN 100 MG/1 ML (LOVENOX) SYR SC ONE (19:00)
[2021-08-31] MEDS ORDERED: dilTIAZem DRIP PRE-MIX 125 ML IV SCH ×2 (19:00→21:45)
[2021-08-31] MEDS ORDERED: NS IV 1000 ML 1,000 ML IV SCH (19:00)
--- NOTE | 2021-08-31 19:02 | Diagnostic Imaging Report ---
INDICATION: Chest pain. EXAMINATION: Portable chest at 7:03 PM. Heart size and pulmonary vascularity are normal. Lungs are clear. There are no effusions or pneumothoraces. IMPRESSION: Negative chest. Dictated by: Dictated on workstation # [id number]
[2021-08-31 19:07] LABS: ALBUMIN 4.3 GM/DL (3.2-4.5); CHLORIDE 104 MMOL/L (98-107); POTASSIUM 3.9 MMOL/L (3.6-5.0); SODIUM 138 MMOL/L (135-145)
[2021-08-31 19:09] LABS: AMYLASE 65 U/L (25-125); CALCIUM 9.3 MG/DL (8.5-10.1)
[2021-08-31 19:10] LABS: GLUCOSE 113 MG/DL (70-105)
[2021-08-31 19:11] LABS: CARBON DIOXIDE 20 MMOL/L (21-32)
[2021-08-31 19:12] LABS: BILIRUBIN,TOTAL 0.4 MG/DL (0.1-1.0)
[2021-08-31 19:13] LABS: ALKALINE PHOSPHATASE 60 U/L (40-136); CREATININE SERUM 1.44 MG/DL (0.60-1.30); GFR ESTIMATED 49
[2021-08-31 19:14] LABS: BUN/CREATININE RATIO 13; INR 1.1 (0.8-1.4); PROTHROMBIN TIME PATIENT 14.2 SEC (12.2-14.7)
[2021-08-31 19:16] LABS: ALANINE AMINOTRANSFERASE 15 U/L (0-55); MAGNESIUM 2.2 MG/DL (1.6-2.4)
[2021-08-31 19:17] LABS: CREATINE KINASE 67 U/L (30-200); LIPASE 50 U/L (8-78)
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
[2021-08-31 20:25] LABS: AMPHETAMINE SCREEN, URINE NEGATIVE (NEGATIVE); BARBITURATE SCREEN URINE NEGATIVE (NEGATIVE); BENZODIAZEPINES SCREEN URINE NEGATIVE (NEGATIVE); CANNABINOID SCREEN, URINE NEGATIVE (NEGATIVE); COCAINE SCREEN URINE NEGATIVE (NEGATIVE); METHADONE STAT NEGATIVE (NEGATIVE); METHAMPHETAMINE SCREEN URINE S NEGATIVE (NEGATIVE); OPIATE SCREEN URINE NEGATIVE (NEGATIVE); OXYCODONE STAT NEGATIVE (NEGATIVE); PROPOXYPHENE STAT NEGATIVE (NEGATIVE); TRICYCLIC ANTIDEPRESSANTS SCRE NEGATIVE (NEGATIVE)
[2021-08-31 20:35] VITALS: BP 142/96
--- NOTE | 2021-08-31 21:24 | Tele-ICU Progress Note ---
Progress Note 66M with afib, htn, bipolar d/o, hld admitted for afib with rvr. Had a similar admit 08/19-08/21 for RVR. Can not remember if he has been taken his medication. Has not followed up with anybody since that visit. 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 - afib: currently controlled at 77, on tele probably aflutter with 3:1 rather than fib. Given lovenox in ED because he could not recall if he had taken eliquis. On cardizem gtt at 5 with good control. - memory loss: some concerns about level of function and ability to remember medications. Concerning for chronic microvascular changes. Will get CT head in AM for further eval. Social work for placement eval. Focused Exam Height, Weight, BMI Height: 5'11.00" Weight: 200lbs. 0.1oz. 90.175069nw; 28.00 BMI Method:Stated KYLIE VIGIL MD Aug 31, 2021 21:23
[2021-08-31] MEDS ORDERED: ONDANSETRON 4 MG/2 ML (SDV) Z0FRAN IV PRN (21:45)
[2021-08-31] MEDS ORDERED: CATHETER FLUSH 10 ML SYR IV PRN (21:45)
[2021-08-31] MEDS ORDERED: morphine INJ 4 MG/ML 1 ML (VIAL/SYRINGE) IV PRN (21:45)
[2021-08-31] MEDS: CATHETER FLUSH 10 ML SYR IV SCH (23:18)
[2021-09-01] MEDS ORDERED: hydrOXYzine (VISTARIL/ATARAX) 25 MG capsule/tablet PO PRN (03:00)
[2021-09-01] MEDS ORDERED: hydrOXYzine (VISTARIL/ATARAX) 25 MG capsule/tablet PO SCH (03:00)
[2021-09-01 04:49] LABS: BASOPHILS # (AUTO) 0.1 10^3/uL (0.0-0.1); BASOPHILS % (AUTO) 1 % (0-10); EOSINOPHILS # (AUTO) 0.2 10^3/uL (0.0-0.3); EOSINOPHILS % (AUTO) 3 % (0-10); HEMATOCRIT 43 % (40-54); HEMOGLOBIN 14.5 g/dL (13.3-17.7); LYMPHOCYTES # (AUTO) 2.9 10^3/uL (1.0-4.0); LYMPHOCYTES % (AUTO) 37 % (12-44); MEAN CORPUSCULAR HEMOGLOBIN 30 pg (25-34); MEAN CORPUSCULAR HGB CONC 34 g/dL (32-36); MEAN CORPUSCULAR VOLUME 89 fL (80-99); MEAN PLATELET VOLUME 9.7 fL (9.0-12.2); MONOCYTES # (AUTO) 0.8 10^3/uL (0.0-1.0); MONOCYTES % (AUTO) 10 % (0-12); NEUTROPHILS # (AUTO) 3.8 10^3/uL (1.8-7.8); NEUTROPHILS % (AUTO) 49 % (42-75); PLATELET COUNT 229 10^3/uL (130-400); WHITE BLOOD COUNT 7.9 10^3/uL (4.3-11.0)
[2021-09-01 05:04] LABS: ALBUMIN 3.7 GM/DL (3.2-4.5); POTASSIUM 3.6 MMOL/L (3.6-5.0)
[2021-09-01 05:05] LABS: CALCIUM 8.6 MG/DL (8.5-10.1)
[2021-09-01 05:08] LABS: BILIRUBIN,TOTAL 0.3 MG/DL (0.1-1.0)
[2021-09-01 05:10] LABS: CREATININE SERUM 1.18 MG/DL (0.60-1.30); PHOSPHORUS 3.9 MG/DL (2.3-4.7)
[2021-09-01 05:13] LABS: MAGNESIUM 2.3 MG/DL (1.6-2.4)
[2021-09-01] MEDS: CATHETER FLUSH 10 ML SYR IV SCH ×2 (05:26→14:04)
[2021-09-01] MEDS ORDERED: MAGNESIUM 1 GM/100 ML IVPB 100 ML IV SCH (06:00)
[2021-09-01] MEDS ORDERED: POTASSIUM CL 10MEQ/50ML IVPB 50 ML IV SCH (06:00)
[2021-09-01] MEDS ORDERED: KCL 20 MEQ TAB (K-DUR) PO SCH (06:00)
--- NOTE | 2021-09-01 08:36 | Consultation-Cardiology ---
HPI-Cardiology Cardiology Consultation Date of Consultation 09/01/21 Date of Admission Time Seen by Provider: 08:32 Indication: Shortness of breath HPI 66 years old gentleman with paroxysmal atrial fibrillation, hypertension. Came into the hospital for increasing fatigue and shortness of breath and lightheadedness, noted to be in atrial fibrillation with rapid ventricular resp onse. Denied any chest pain. No palpitation. No syncope, expressed that he did not feel his heart rate racing. He was started on Cardizem drip and converted overnight to sinus rhythm. Home Medications & Allergies Allergies: Coded Allergies: No Known Drug Allergies (Unverified , 09/18/13) Home Medication List Reviewed: Yes IPJ-Dpvciv-Xahayc Hx Patient Social History 2nd Hand Smoke Exposure: No Recent Hopitalizations: No Alcohol Use?: No Immunizations Up To Date Tetanus Booster (TDap): Less than 5yrs Date of Pneumonia Vaccine: May 18, 2017 Date of Influenza Vaccine: Jul 01, 2021 Past Medical History Discussed below Family Medical History Significant Family History: No Pertinent Family Hx Family Medical Hx Noncontributory Review of Systems-General Review of Systems Constitutional: see HPI, malaise, weakness EENTM: see HPI, no symptoms reported Respiratory: see HPI; No cough; dyspnea on exertion; No hemoptysis, No orthopnea, No phlegm, No short of breath, No stridor, No wheezing, No other Cardiovascular: see HPI; No chest pain, No edema, No Hx of Intervention, No palpitations, No syncope, No vascular heart diseas, No other Gastrointestinal: no symptoms reported, see HPI Genitourinary: no symptoms reported, see HPI Musculoskeletal: no symptoms reported, see HPI Skin: no symptoms reported, see HPI Psychiatric/Neurological: No Symptoms Reported, See HPI Reviewed Test Results Reviewed Test Results Lab Laboratory Tests Test 08/31/21 18:46 08/31/21 20:02 09/01/21 04:19 Range/Units White Blood Count 9.9 7.9 4.3-11.0 10^3/uL Red Blood Count 5.34 4.82 4.30-5.52 10^6/uL Hemoglobin 16.4 14.5 13.3-17.7 g/dL Hematocrit 46 43 40-54 % Mean Corpuscular Volume 87 89 80-99 fL Mean Corpuscular Hemoglobin 31 30 25-34 pg Mean Corpuscular Hemoglobin Concent 35 34 32-36 g/dL Red Cell Distribution Width 12.8 13.1 10.0-14.5 % Platelet Count 262 229 130-400 10^3/uL Mean Platelet Volume 9.5 9.7 9.0-12.2 fL Immature Granulocyte % (Auto) 0 0 % Neutrophils (%) (Auto) 73 49 42-75 % Lymphocytes (%) (Auto) 15 37 12-44 % Monocytes (%) (Auto) 10 10 0-12 % Eosinophils (%) (Auto) 1 3 0-10 % Basophils (%) (Auto) 1 1 0-10 % Neutrophils # (Auto) 7.2 3.8 1.8-7.8 10^3/uL Lymphocytes # (Auto) 1.5 2.9 1.0-4.0 10^3/uL Monocytes # (Auto) 1.0 0.8 0.0-1.0 10^3/uL Eosinophils # (Auto) 0.1 0.2 0.0-0.3 10^3/uL Basophils # (Auto) 0.1 0.1 0.0-0.1 10^3/uL Immature Granulocyte # (Auto) 0.0 0.0 0.0-0.1 10^3/uL Prothrombin Time 14.2 12.2-14.7 SEC INR Comment 1.1 0.8-1.4 Activated Partial Thromboplast Time 24 24-35 SEC Sodium Level 138 138 135-145 MMOL/L Potassium Level 3.9 3.6 3.6-5.0 MMOL/L Chloride Level 104 105 98-107 MMOL/L Carbon Dioxide Level 20 L 22 21-32 MMOL/L Anion Gap 14 11 5-14 MMOL/L Blood Urea Nitrogen 19 H 19 H 7-18 MG/DL Creatinine 1.44 H 1.18 0.60-1.30 MG/DL Estimat Glomerular Filtration Rate 49 61 BUN/Creatinine Ratio 13 16 Glucose Level 113 H 117 H 70-105 MG/DL Calcium Level 9.3 8.6 8.5-10.1 MG/DL Corrected Calcium 9.1 8.8 8.5-10.1 MG/DL Magnesium Level 2.2 2.3 1.6-2.4 MG/DL Total Bilirubin 0.4 0.3 0.1-1.0 MG/DL Aspartate Amino Transf (AST/SGOT) 16 16 5-34 U/L Alanine Aminotransferase (ALT/SGPT) 15 13 0-55 U/L Alkaline Phosphatase 60 54 40-136 U/L Total Creatine Kinase 67 30-200 U/L Creatine Kinase MB 1.0 <6.6 NG/ML Myoglobin 42.6 10.0-92.0 NG/ML Troponin I < 0.028 <0.028 NG/ML B-Type Natriuretic Peptide 123.2 H 75.9 <100.0 PG/ML Total Protein 7.0 6.0 L 6.4-8.2 GM/DL Albumin 4.3 3.7 3.2-4.5 GM/DL Amylase Level 65 25-125 U/L Lipase 50 8-78 U/L Thyroid Stimulating Hormone (TSH) 1.92 0.35-4.94 UIU/ML Urine Opiates Screen NEGATIVE NEGATIVE Urine Oxycodone Screen NEGATIVE NEGATIVE Urine Methadone Screen NEGATIVE NEGATIVE Urine Propoxyphene Screen NEGATIVE NEGATIVE Urine Barbiturates Screen NEGATIVE NEGATIVE Ur Tricyclic Antidepressants Screen NEGATIVE NEGATIVE Urine Phencyclidine Screen NEGATIVE NEGATIVE Urine Amphetamines Screen NEGATIVE NEGATIVE Urine Methamphetamines Screen NEGATIVE NEGATIVE Urine Benzodiazepines Screen NEGATIVE NEGATIVE Urine Cocaine Screen NEGATIVE NEGATIVE Urine Cannabinoids Screen NEGATIVE NEGATIVE Phosphorus Level 3.9 2.3-4.7 MG/DL Triglycerides Level 235 H <150 MG/DL Cholesterol Level 191 < 200 MG/DL LDL Cholesterol Direct 146 H 1-129 MG/DL VLDL Cholesterol 47 H 5-40 MG/DL HDL Cholesterol 35 L 40-60 MG/DL Physical Exam Physical Exam Vital Signs Vital Signs - First Documented 08/31/21 08/31/21 18:41 20:35 Temp 35.6 Pulse 135 Resp 16 B/P (MAP) 123/88 (100) Pulse Ox 99 O2 Delivery Room Air Capillary Refill : Less Than 3 Seconds Height, Weight, BMI Height: 5'11.00" Weight: 200lbs. 0.1oz. 90.782327gg; 31.53 BMI Method:Stated General Appearance: No Apparent Distress, WD/WN Eyes: Bilateral Eye Normal Inspection, Bilateral Eye PERRL, Bilateral Eye EOMI HEENT: PERRL/EOMI, TMs Normal, Normal ENT Inspection, Pharynx Normal, Moist Mucous Membranes Neck: Full Range of Motion, Normal Inspection, Non Tender, Supple, Carotid Bruit Respiratory: Chest Non Tender, Normal Breath Sounds, No Accessory Muscle Use, No Respiratory Distress Cardiovascular: Regular Rate, Rhythm, No Edema, No Gallop, No JVD, No Murmur, Normal Peripheral Pulses Gastrointestinal: Normal Bowel Sounds, No Organomegaly, No Pulsatile Mass, Non Tender, Soft Back: Normal Inspection, No CVA Tenderness, No Vertebral Tenderness Extremity: Normal Capillary Refill, Normal Inspection, Normal Range of Motion, Non Tender, No Calf Tenderness, No Pedal Edema Neurologic/Psychiatric: Alert, Oriented x3, No Motor/Sensory Deficits, Normal Mood/Affect Skin: Normal Color, Warm/Dry Lymphatic: No Adenopathy A/P-Cardiology Admission Diagnosis Paroxysmal atrial fibrillation Generalized fatigue Hypertension Hyperlipidemia Assessment/Plan Paroxysmal atrial fibrillation converted to sinus rhythm on Cardizem, I will decrease Cardizem to Cardizem CD 120 mg daily. Educated on taking medication regularly and monitor heart rate and blood pressure. I will add flecainide 50 mg twice daily and monitor EKG closely I offered the patient again an appointment with my office and he agreed. I will schedule him for follow-up as an outpatient Generalized fatigue, loss of energy and loss of stamina. Has underlying sleep apnea and does not use his BiPAP machine. I educated him on the importance of using his BiPAP machine and offered him referral for our sleep specialist as an outpatient, [facility]. [id number] score 2, yearly risk of stroke without oral anticoagulation is 2.2%, maintained on Eliquis. Coronary artery disease, cardiac catheterization was done earlier in August 2021 showing tortuous coronary artery with mild to moderate disease nonobstructive disease, continue to monitor Hypertension, restarting his medication and monitor tolerance and response Hyperlipidemia, maintained on Zetia. Mild elevation in liver enzymes. Continue to monitor History of erectile dysfunction, maintained on Viagra Bipolar disorder. Managed by the [facility] KAREN COREY MD Sep 01, 2021 08:36
[2021-09-01] MEDS ORDERED: KCL 20 MEQ TAB (K-DUR) PO ONE (09:00)
[2021-09-01] MEDS ORDERED: ENOXAPARIN 100 MG/1 ML (LOVENOX) SYR SC SCH (09:00)
[2021-09-01] MEDS ORDERED: FLECAINIDE 100 MG (TAMBOCOR) TAB PO SCH (09:00)
[2021-09-01] MEDS ORDERED: dilTIAZem120 MG (CARDIZEM CD) CAP PO SCH (09:00)
[2021-09-01] MEDS ORDERED: ASPIRIN E.C. 81 MG (ECOTRIN) TAB PO SCH (09:00)
--- NOTE | 2021-09-01 10:14 | Tele-ICU Progress Note ---
Subjective Date Seen by a Provider: Sep 01, 2021 Time Seen by a Provider: 10:14 Sepsis Event Evaluation Height, Weight, BMI Height: 5'11.00" Weight: 200lbs. 0.1oz. 90.262810mp; 31.53 BMI Method:Stated Exam Exam Patient acknowledged, consented, and participated in this virtual visit which was conducted using real time audio/video Vital Signs Date Time Temp Pulse Resp B/P (MAP) Pulse Ox O2 Delivery O2 Flow Rate FiO2 09/01/21 09:00 47 9 121/69 97 Room Air 09/01/21 08:45 48 8 128/74 95 Room Air 09/01/21 08:30 46 10 122/75 97 Room Air 09/01/21 08:15 48 7 116/73 98 Room Air 09/01/21 08:00 47 15 118/61 98 Room Air 09/01/21 07:52 36.0 09/01/21 07:45 47 10 120/71 98 Room Air 09/01/21 07:30 49 10 130/83 09/01/21 07:15 43 12 113/79 96 Room Air 09/01/21 07:00 49 09/01/21 07:00 46 13 104/79 98 Room Air 09/01/21 06:00 46 14 126/61 92 Room Air 09/01/21 05:00 48 15 132/71 95 Room Air 09/01/21 04:00 48 16 110/58 97 Room Air 09/01/21 04:00 97 Room Air 09/01/21 04:00 36.6 09/01/21 03:00 51 13 127/69 93 Room Air 09/01/21 02:00 49 16 124/70 93 Room Air 09/01/21 01:12 50 09/01/21 01:00 71 09/01/21 01:00 71 18 98/57 95 Room Air 09/01/21 00:00 81 12 150/100 95 Room Air 08/31/21 23:59 97 Room Air 08/31/21 23:00 81 23 98/94 97 Room Air 08/31/21 22:45 78 13 138/80 96 Room Air 08/31/21 22:30 83 12 138/90 96 Room Air 08/31/21 22:15 75 14 131/91 95 Room Air 08/31/21 22:00 78 17 131/81 97 Room Air 08/31/21 21:51 97 Room Air 08/31/21 21:45 77 30 119/67 97 Room Air 08/31/21 21:30 89 17 119/96 99 Room Air 08/31/21 21:15 36.8 80 10 141/87 97 Room Air 08/31/21 21:07 87 08/31/21 20:35 74 16 142/96 97 Room Air 08/31/21 18:41 35.6 135 16 123/88 (100) 99 I & O 09/01/21 07:00 Intake Total 1400 ml Output Total 1125 ml Balance 275 ml Height & Weight Height: 5'11.00" Weight: 200lbs. 0.1oz. 90.661399ar; 31.53 BMI Method:Stated General Appearance: No Apparent Distress, WD/WN HEENT: PERRL/EOMI, TMs Normal, Normal ENT Inspection, Pharynx Normal, Moist Mucous Membranes Neck: Full Range of Motion, Normal Inspection, Non Tender, Supple, Carotid Bruit Respiratory: Chest Non Tender, Normal Breath Sounds, No Accessory Muscle Use, No Respiratory Distress Cardiovascular: Regular Rate, Rhythm, No Edema, No Gallop, No JVD, No Murmur, Normal Peripheral Pulses Capillary Refill: Less Than 3 Seconds Extremity: Normal Capillary Refill, Normal Inspection, Normal Range of Motion, Non Tender, No Calf Tenderness, No Pedal Edema Neurologic/Psychiatric: Alert, Oriented x3, No Motor/Sensory Deficits, Normal M ood/Affect Skin: Normal Color, Warm/Dry Lymphatic: No Adenopathy Results Lab Laboratory Tests 08/31/21 18:46 09/01/21 04:19 Assessment/Plan Assessment/Plan Tele-ICU Physician , Progress Note ) Available chart/ vitals / labs / Images reviewed Video assessment done using teleICU camera, rest of exam as per RN Discussed with RN , EXAM PER RN Events overnight : Afebrile FiO2 - I/O = Drips: cardizem Pressors: , hemodynamically stable Consultants: mckenzie Hospital course: [birth year]66M with afib, htn, bipolar d/o, hld admitted for afib with rvr cardizem gtt A/P AFIB - RVR - card gtt as per cards - converted to sinus - OFF cardizem gtt - Lovenox started - 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 compliance Memory loss - CTH pending. w/up as per PCP RICKEY - improved Lines : periph (Central Line Necessity Reviewed) Lovelace: void OG: Nutrition: Analgesia: Anxiety/ delirium VTE Prophylaxis: jessica full dose Stress Ulcer Prophylaxis: PO intake Glycemic Control: Plans in collaboration with bedside consultants and IM MDs. Discussed with RN to reach out if any questions or concerns A total of 20 minutes of critical care time was devoted to this patient today, required to treat and/or prevent further deterioration of critical care condition ( as above) . ARNEL SUAZO MD Sep 01, 2021 10:14
[2021-09-01] MEDS ORDERED: DILT-27 PO ×3 (11:15→12:44)
[2021-09-01] MEDS ORDERED: FLEC100T PO ×2 (11:15→12:42)
[2021-09-01] MEDS ORDERED: FLEC50TA PO (12:44)
--- NOTE | 2021-09-01 12:54 | Discharge Summary ---
Discharge Summary Instructions for Patient [facility] Assessment/Instructions See instructions Physician to follow Patient: [facility] Discharge Diet for Home: Low Sodium Diet Hospital Course Date of Admission: Aug 31, 2021 at 20:00 Admission Diagnosis : AFib with RVR Family Physician/Provider: Dali Kumari Physician Date of Discharge: 09/01/21 Discharge Diagnosis: AFib with RVR Hospital Course: Chidi Corcoran is a 66 year old male who was admitted with AFib with RVR. Cardiology was consulted and assisted with his care. He was started on IV Cardizem and his rates improved. He was started on oral Cardizem and Flecainide. He was continued on Eliquis. He was discharged home in stable condition. He should follow up with his PCP in about a week. Labs and Pending Lab Test: Laboratory Tests 08/31/21 18:46: White Blood Count 9.9, Red Blood Count 5.34, Hemoglobin 16.4, Hematocrit 46, Mean Corpuscular Volume 87, Mean Corpuscular Hemoglobin 31, Mean Corpuscular Hemoglobin Concent 35, Red Cell Distribution Width 12.8, Platelet Count 262, Mean Platelet Volume 9.5, Immature Granulocyte % (Auto) 0, Neutrophils (%) (Auto) 73, Lymphocytes (%) (Auto) 15, Monocytes (%) (Auto) 10, Eosinophils (%) (Auto) 1, Basophils (%) (Auto) 1, Neutrophils # (Auto) 7.2, Lymphocytes # (Auto) 1.5, Monocytes # (Auto) 1.0, Eosinophils # (Auto) 0.1, Basophils # (Auto) 0.1, Immature Granulocyte # (Auto) 0.0, Prothrombin Time 14.2, INR Comment 1.1, Activated Partial Thromboplast Time 24, Sodium Level 138, Potassium Level 3.9, Chloride Level 104, Carbon Dioxide Level 20L, Anion Gap 14, Blood Urea Nitrogen 19H, Creatinine 1.44H, Estimat Glomerular Filtration Rate 49, BUN/Creatinine Ratio 13, Glucose Level 113H, Calcium Level 9.3, Corrected Calcium 9.1, Magnesium Level 2.2, Total Bilirubin 0.4, Aspartate Amino Transf (AST/SGOT) 16, Alanine Aminotransferase (ALT/SGPT) 15, Alkaline Phosphatase 60, Total Creatine Kinase 67, Creatine Kinase MB 1.0, Myoglobin 42.6, Troponin I < 0.028, B-Type Natriuretic Peptide 123.2H, Total Protein 7.0, Albumin 4.3, Amylase Level 65, Lipase 50, Thyroid Stimulating Hormone (TSH) 1.92 08/31/21 20:02: Urine Opiates Screen NEGATIVE, Urine Oxycodone Screen NEGATIVE, Urine Methadone Screen NEGATIVE, Urine Propoxyphene Screen NEGATIVE, Urine Barbiturates Screen NEGATIVE, Ur Tricyclic Antidepressants Screen NEGATIVE, Urine Phencyclidine Screen NEGATIVE, Urine Amphetamines Screen NEGATIVE, Urine Methamphetamines Scre en NEGATIVE, Urine Benzodiazepines Screen NEGATIVE, Urine Cocaine Screen NEGATIVE, Urine Cannabinoids Screen NEGATIVE 09/01/21 04:19: White Blood Count 7.9, Red Blood Count 4.82, Hemoglobin 14.5, Hematocrit 43, Mean Corpuscular Volume 89, Mean Corpuscular Hemoglobin 30, Mean Corpuscular Hemoglobin Concent 34, Red Cell Distribution Width 13.1, Platelet Count 229, Mean Platelet Volume 9.7, Immature Granulocyte % (Auto) 0, Neutrophils (%) (Auto) 49, Lymphocytes (%) (Auto) 37, Monocytes (%) (Auto) 10, Eosinophils (%) (Auto) 3, Basophils (%) (Auto) 1, Neutrophils # (Auto) 3.8, Lymphocytes # (Auto) 2.9, Monocytes # (Auto) 0.8, Eosinophils # (Auto) 0.2, Basophils # (Auto) 0.1, Immature Granulocyte # (Auto) 0.0, Sodium Level 138, Potassium Level 3.6, Chloride Level 105, Carbon Dioxide Level 22, Anion Gap 11, Blood Urea Nitrogen 19H, Creatinine 1.18, Estimat Glomerular Filtration Rate 61, BUN/Creatinine Ratio 16, Glucose Level 117H, Calcium Level 8.6, Corrected Calcium 8.8, Magnesium Level 2.3, Total Bilirubin 0.3, Aspartate Amino Transf (AST/SGOT) 16, Alanine Aminotransferase (ALT/SGPT) 13, Alkaline Phosphatase 54, B-Type Natriuretic Peptide 75.9, Total Protein 6.0L, Albumin 3.7, Phosphorus Level 3.9, Triglycerides Level 235H, Cholesterol Level 191, LDL Cholesterol Direct 146H, VLDL Cholesterol 47H, HDL Cholesterol 35L Home Meds Active Diltiazem 24Hr ER (Diltiazem HCl) 120 Mg Cap.er.24h 120 Mg PO DAILY 30 Days Flecainide Acetate 50 Mg Tablet 50 Mg PO BID 30 Days Diltiazem 24Hr ER (Diltiazem HCl) 120 Mg Cap.er.24h 120 Mg PO DAILY 5 Days Flecainide Acetate 100 Mg Tablet 50 Mg PO BID 5 Days Reported Vitamin C (Ascorbate Calcium) 500 Mg Tablet 500 Mg PO DAILY Eliquis (Apixaban) 5 Mg Tablet 5 Mg PO BID Buspirone HCl 15 Mg Tablet 7.5 Mg PO BID TAKES OF A 15MG TAB Hydrochlorothiazide 25 Mg Tablet 12.5 Mg PO DAILY TAKES OF A 25MG Artificial Tears (Carboxymethylcellulose Sodium) 15 Ml Drops 1 Drop OU BID Paroxetine HCl 20 Mg Tablet 20 Mg PO DAILY TAKES 20MG + 30MG TO EQUAL 50MG Vitamin D3 (Cholecalciferol (Vitamin D3)) 25 Mcg Tablet 25 Mcg PO DAILY Paroxetine HCl 30 Mg Tablet 30 Mg PO DAILY TAKES 20MG + 30MG TO EQUAL 50MG Hydroxyzine HCl 25 Mg Tablet 75 Mg PO HS Valproic Acid 250 Mg Capsule 500 Mg PO BID TAKES 2 (500MG) TABS Riboflavin 100 Mg Tablet 400 Mg PO DAILY TAKES 4 (100MG) TABS Magnesium (Magnesium Oxide) 400 Mg Capsule 400 Mg PO DAILY Hydroxyzine HCl 25 Mg Tablet 25 Mg PO TID PRN Ezetimibe 10 Mg Tablet 5 Mg PO DAILY TAKES OF A 10MG TAB Diclofenac Sodium 100 Gm Gel..gram. 2 Gm TP TID PRN Acetaminophen 500 Mg Tablet 1,000 Mg PO Q8H PRN Fluticasone Propionate 16 Gm [place].susp 2 Sprays NSEACH DAILY Consulations Cardiology Patient Allergies: Coded Allergies: No Known Drug Allergies (Unverified , 09/18/13) Height (Feet): 5 Height (Inches): 11.00 Weight (Pounds): 200 Weight (Ounces): 0.1 Home Health Need/Face to Face Date of Face to Face: Sep 01, 2021 Clinical Findings: Generalized weakness and fatigue, Muscle weakness, Unsteady gait I have seen Pt [id number]: Yes Discharged To: Home Diagnosis/Conditions: AFib with RVR CAD HTN HLD Depression Bipolar Problems/Diagnosis/Condition: (1) HTN (hypertension) (2) HLD (hyperlipidemia) (3) Depression (4) Bipolar disorder (5) Atrial fibrillation with RVR Patient is Homebound due to: [place] fall risk due to instabilty, Muscle weakness Homebound Status Due to the above stated illness, injury or surgical procedure (medical condition or diagnosis) and associated clinical findings, the patient is homebou nd because of his/her inability to leave home except with aid of a supportive device and/or person AND leaving the home requires a considerable and taxing effort or is medically contraindicated. Pt req the following assistanc: Aid of another person Home Health Nursing Orders Home Health Services Order: Nursing Services Certify Stmt I certify that this patient is under my care and that I, a nurse practitioner or a physician; a talent acquisition assistant working with me, had a face to face encounter that - meets the physician face to face encounter requirements with this patient as dated. Discharge Physical Exam General: Alert, Oriented X3, Cooperative, No Acute Distress HEENT: Atraumatic, EOMI, Mucous Memb Moist/[place] Lungs: Clear to Auscultation, Normal Air Movement Heart: No Murmurs, Other (irregularly irregular, regular rate) Abdomen: Normal Bowel Sounds, Soft, No Tenderness Extremities: No Edema, No Tenderness/Swelling Skin: No Rashes, No Significant Lesion Neuro: Normal Speech, Normal Tone Psych/Mental Status: Mental Status NL, Other (depressed affect) CLAUDIA SCHROEDER MD Sep 01, 2021 12:54
[2021-09-01] MEDS ORDERED: MELATONIN 3 MG TABLET PO SCH (21:00)
[2021-09-01] MEDS ORDERED: APIXABAN 5 MG (ELIQUIS) TABLET PO SCH (21:00)
--- NOTE | 2021-09-03 13:39 | Physician Query Clarification ---
[id number] RICKEY Abbreviation Admission/Discharge Admission Date: Aug 31, 2021 at 20:00 Discharge Date: Sep 01, 2021 at 15:00 The medical record reflects the following clinical scenario: History/Risk factors: PAF Clinical Findings: RICKEY listed on 09/01/21 Dr Rivera note Treatment: Fluids Question: Please clarify the abbreviation of RICKEY documented in 09/01 note. Please document a response in the Progress Notes or Discharge Summary. 1. RICKEY meaning - Acute Kidney Injury(failure) 2. RICKEY meaning - Acute Kidney Insufficiency 3. Other, with explanation of the clinical findings. 4. Clinically undetermined, no explanation for the clinical findings. PHYSICIAN RESPONSE Clarify RICKEY abbreviation.: Other, clinical findings Explanation of clincal finding This was not written in my note. Please direct this question to Dr. Rivrea. Please remember a lack of response to the above will prompt a phone page by CDI/Coding staff. In responding to this query, please exercise your independent professional judgment. The purpose of this communication is to more accurately reflect the complexity of your patients condition. The fact that a question is asked does not imply that any particular answer is desired or expected. Thank you for your timely response to this clarification. Requestors name: Isabel THIS PHYSICIAN QUERY FORM IS A PERMANENT PART OF THE MEDICAL RECORD ISABEL ASIF Sep 03, 2021 13:39 CLAUDIA SCHROEDER MD Sep 10, 2021 19:25
--- NOTE | 2021-09-12 07:47 | Physician Query Clarification ---
[id number] RICKEY Abbreviation Admission/Discharge Admission Date: Aug 31, 2021 at 20:00 Discharge Date: Sep 01, 2021 at 15:00 The medical record reflects the following clinical scenario: History/Risk factors: AF Clinical Findings: RICKEY listed on 09/01/note Treatment: Fluids Question: Please clarify the abbreviation of RICKEY documented in [list source document(s)]. Please document a response in the Progress Notes or Discharge Summary. 1. RICKEY meaning - Acute Kidney Injury 2. RICKEY meaning - Acute Kidney Insufficiency 3. Other, with explanation of the clinical findings. 4. Clinically undetermined, no explanation for the clinical findings. Please remember a lack of response to the above will prompt a phone page by CDI/Coding staff. In responding to this query, please exercise your independent professional judgment. The purpose of this communication is to more accurately reflect the complexity of your patients condition. The fact that a question is asked does not imply that any particular answer is desired or expected. Thank you for your timely response to this clarification. Requestors name: Isabel THIS PHYSICIAN QUERY FORM IS A PERMANENT PART OF THE MEDICAL RECORD ISABEL ASIF Sep 12, 2021 07:47
== END 2021-09-01 15:00 | disposition home health service (06) | DRG 310 ==
LOC: EDUNIT# 18:30 → ER 18:33 → ICU 20:00
PROVIDERS: ADMIT Internal Medicine; ATTEND Internal Medicine
DX: I48.0 Paroxysmal atrial fibrillation (principal); N28.9 Disorder of kidney and ureter, unspecified; F31.9 Bipolar disorder, unspecified; F41.9 Anxiety disorder, unspecified; G47.30 Sleep apnea, unspecified; E78.00 Pure hypercholesterolemia, unspecified; I10 Essential (primary) hypertension; E78.5 Hyperlipidemia, unspecified; I25.10 Atherosclerotic heart disease of native coronary artery without angina pectoris; R74.8 Abnormal levels of other serum enzymes; N52.9 Male erectile dysfunction, unspecified; R41.3 Other amnesia; M62.81 Muscle weakness (generalized); Z79.899 Other long term (current) drug therapy; Z79.01 Long term (current) use of anticoagulants
CPT/HCPCS: 36415; 71045; 80053; 80061; 80306; 82150; 82550; 82553; 83690; 83735; 83874; 83880; 84100; 84443; 84484; 85025; 85610; 85730; 93005; 93041; 96372; 96374; 96375

== ENCOUNTER 2022-11-09 12:49 | Emergency (ER) | payer OTHER ==
[~2022-11-09] VITALS: Ht 180.3 cm; Wt 94.2 kg
[~2022-11-09 12:49] MED LIST changes: +DILT-27 PO; +DILT-8 PO; +FLEC100T PO; +FLEC150T2 PO; +FLEC50TA PO
[2022-11-09 13:12] VITALS: BP 123/81
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
== END 2022-11-09 13:28 | disposition home or self-care (01) ==
LOC: EDUNIT# 12:49 → ER 12:52
DX: S80.11XA Contusion of right lower leg, initial encounter (principal); I48.91 Unspecified atrial fibrillation; G47.30 Sleep apnea, unspecified; Z79.01 Long term (current) use of anticoagulants; Z99.89 Dependence on other enabling machines and devices; W01.0XXA Fall on same level from slipping, tripping and stumbling without subsequent striking against object, initial encounter
CPT/HCPCS: 99281